=== PATIENT | male | born 1980 | race American Indian/Alaskan Native ===

== ENCOUNTER 2016-12-30 21:06 | Emergency (ER) | payer MEDICAID ==
[2016-12-30 21:59] LABS: Urine Drugs of Abuse Note Disclamer
[2016-12-30 22:07] LABS: Bilirubin,Urine NEG (Negative); Blood,Urine NEG (Negative); Ketones,Urine NEG (Negative); Leukocyte Esterase,Urine NEG (Negative); Nitrite,Urine NEG (Negative); Protein,Urine <15 mg/dL mg/dL (Negative); Urobilinogen,Urine < 2.0 mg/dL (<2.0); WBC,Urine < 1.0 /HPF (0.0-6.0)
[2016-12-30 22:13] LABS: Basophils % (Auto) 1.3 % (0.0-1.8); Eosinophils % (Auto) 2.6 % (0.0-4.3); Hematocrit 41.8 % (35.5-45.6); Hemoglobin 13.7 gm/dl (11.8-15.2); Mean Corpuscular HGB Conc 33 % (32-34); Mean Corpuscular Hemoglobin 32 pg (28-32); Mean Corpuscular Volume 98 fl (84-94); Platelet Count 198 K/mm3 (140-440); Red Blood Count 4.25 M/mm3 (3.65-5.03); Red Cell Distribution Width 13.2 % (13.2-15.2); White Blood Count 7.8 K/mm3 (4.5-11.0)
[2016-12-30 22:20] LABS: Anion Gap 16 mmol/L; Blood Urea Nitrogen 12 mg/dL (9-20); Calcium 9.2 mg/dL (8.4-10.2); Carbon Dioxide 26 mmol/L (22-30); Glucose 109 mg/dL (75-100); Potassium 4.3 mmol/L (3.6-5.0); Sodium 137 mmol/L (137-145)
[2016-12-30] MEDS ORDERED: CATAPRES PO ONE (22:47)
[2016-12-30] MEDS ORDERED: TYLENOL PO PRN (22:48)
[2016-12-30] MEDS ORDERED: ALUM-MAG HYDROX-SIMETH 200-200-20MG/5ML PO PRN (22:48)
[2016-12-30] MEDS ORDERED: MILK OF MAGNESIA PO PRN (22:48)
--- NOTE | 2016-12-30 22:48 | Emergency Department Report ---
HPI - General Chief Complaint: Psych Time Seen by Provider: 12/30/16 21:15 - HPI HPI: The patient is a 36-year-old male who presents for evaluation of mental health. The patient has a history of schizophrenia. The patient's mother states that the patient has exhibited erratic behavior and experienced hallucinations for the past couple of days. The patient states that he is hearing God's voice and they got is telling him to fight the devil and demons. The patient denies fever , headache, unexplained weight loss or weight gain, heat or cold intolerance, skin, hair, or nail changes, neuro deficits, suicidal ideations or homicidal ideations. ED Past Medical Hx - Past Medical History Previous Medical History?: Yes Hx Hypertension: Yes Hx Seizures: Yes Hx Psychiatric Treatment: Yes Additional medical history: Schizophrenia - Surgical History Past Surgical History?: Yes Additional Surgical History: Left Hand - Social History Smoking Status: Never Smoker Substance Use Type: None - Medications Home Medications: Home Medications Medication Instructions Recorded Confirmed Last Taken Type Benztropine 1 mg PO BID 12/30/16 12/30/16 Unknown History Furosemide 20 mg PO QDAY 12/30/16 12/30/16 Unknown History Hydrochlorothiazide 25 mg PO QDAY 12/30/16 12/30/16 Unknown History Lisinopril 40 mg PO DAILY 12/30/16 12/30/16 Unknown History Metoprolol SUCCINATE ER TAB 25 mg PO QDAY 12/30/16 12/30/16 Unknown History Phenytoin 200 mg PO QHS 12/30/16 12/30/16 Unknown History Phenytoin 300 mg PO QAM 12/30/16 12/30/16 Unknown History risperiDONE 3 mg PO BID 12/30/16 12/30/16 Unknown History traZODone 100 mg PO QHS 12/30/16 12/30/16 Unknown History ED Review of Systems ROS: Stated complaint: SCHIZOPHRENIC EPISODE Other details as noted in HPI Constitutional: denies: fever ENT: denies: throat or neck pain Respiratory: denies: cough, shortness of breath Cardiovascular: denies: chest pain Endocrine: denies unexplained weight loss or gain Gastrointestinal: denies: abdominal pain, nausea Genitourinary: denies: dysuria Musculoskeletal: denies: leg swelling Skin: denies: rash Neurological: denies: headache Hematological/Lymphatic: denies: easy bleeding or easy bruising Psych: reports hallucinations Physical Exam - Physical Exam Vital Signs: Vital Signs 12/30/16 12/30/16 21:26 21:45 Temperature 98.9 F Pulse Rate 100 H Respiratory 14 14 Rate Blood Pressure 157/104 Blood Pressure 157/104 [Right] O2 Sat by Pulse 94 94 Oximetry Physical Exam: General: well-nourished, well-developed, no acute distress Head: Normocephalic, atraumatic Eyes: normal sclera ENT: Mucous membranes are pink and moist Neck: trachea midline, neck supple, No neck stiffness, no cervical adenopathy Respiratory: Breath sounds equal bilaterally, no wheezing, rales, or rhonchi Cardio: S1 and S2 present, no murmurs, rubs, gallops, capillary refill is brisk Abdomen: Normoactive bowel sounds, soft abdomen, no tenderness Musc: No pitting edema Skin: No rash Neuro: no facial drooping, normal speech Psych: Flat affect, depressed mood, poor insight, patient delusional, positive hallucinations ED Course Vital Signs 12/30/16 12/30/16 21:26 21:45 Temperature 98.9 F Pulse Rate 100 H Respiratory 14 14 Rate Blood Pressure 157/104 Blood Pressure 157/104 [Right] O2 Sat by Pulse 94 94 Oximetry ED Medical Decision Making - Lab Data Result diagrams: 12/30/16 21:52 12/30/16 21:52 - Medical Decision Making The patient was seen and examined by myself. The patient is placed on a cardiac cath tech and continuous pulse ox. On initial evaluation, the patient was found to be in no distress. The patient is given a tablet of clonidine for treatment of his hypertension. Labs are obtained. Lab results are grossly unremarkable and the patient was found to have normalization of blood pressure . The patient is medically clear. Mental health is consulted. Mental health evaluates the patient and agrees that the patient is exhibiting symptoms consistent with acute psychosis. A 1013 is completed. The patient will be admitted to a psychiatric facility once bed placement is obtained. Critical care attestation.: If time is entered above; I have spent that time in minutes in the direct care of this critically ill patient, excluding procedure time. ED Disposition Clinical Impression: Acute psychosis, Hypertensive urgency Schizophrenia Qualifiers: Schizophrenia type: paranoid schizophrenia Qualified Code(s): F20.0 - Paranoid schizophrenia Disposition: DC/TX PSY HOSP/PSY UNIT Is pt being admited?: No Does the pt Need Aspirin: No Condition: Stable Referrals: PRIMARY CARE, [Primary Care Provider] - 3-5 Days Time of Disposition: 22:46
[2016-12-31] MEDS ORDERED: CATAPRES ONE (01:57)
[2016-12-31 03:38] VITALS: BP 149/90
[2016-12-31] MEDS ORDERED: NON-FORMULARY (Metoprolol Succinate Er Tab 25 MG) PO SCH (10:00)
[2016-12-31] MEDS ORDERED: TOPROL XL PO SCH (10:00)
[2016-12-31] MEDS ORDERED: NON-FORMULARY (Hydrochlorothiazide 25 MG) PO SCH (10:00)
[2016-12-31] MEDS ORDERED: RisperDAL PO SCH (10:00)
[2016-12-31] MEDS ORDERED: NON-FORMULARY (Furosemide 20 MG) PO SCH (10:00)
[2016-12-31] MEDS ORDERED: ZESTRIL PO SCH (10:00)
[2016-12-31] MEDS ORDERED: PHENYTOIN 300 MG PO SCH (10:00)
[2016-12-31] MEDS ORDERED: COGENTIN PO SCH (10:00)
[2016-12-31] MEDS ORDERED: HCTZ PO SCH (10:00)
[2016-12-31] MEDS ORDERED: DILANTIN PO SCH ×2 (10:00→22:00)
[2016-12-31] MEDS ORDERED: BENZTROPINE 1 MG PO SCH (10:00)
[2016-12-31] MEDS ORDERED: LASIX PO SCH (10:00)
[2016-12-31] MEDS ORDERED: NON-FORMULARY (Lisinopril 40 MG) PO SCH (10:00)
[2016-12-31] MEDS ORDERED: RISPERIDONE 3 MG PO SCH (10:00)
[2016-12-31] MEDS ORDERED: PHENYTOIN 200 MG PO SCH (22:00)
== END 2016-12-31 05:52 ==
LOC: EEVIPCON 21:06 → ED 21:06
DX: F20.0 Paranoid schizophrenia (principal); F23 Brief psychotic disorder; I10 Essential (primary) hypertension
CPT/HCPCS: 36415; 80048; 80307; 81001; 85025; 99285; G0480; 80320

== ENCOUNTER 2017-01-08 08:16 | Emergency (ER) | payer MEDICAID ==
[2017-01-08 09:21] VITALS: BP 154/100
[2017-01-08] MEDS ORDERED: HALDOL ONE (10:32)
[2017-01-08] MEDS ORDERED: VERSED IV ONE (10:33)
[2017-01-08] MEDS ORDERED: HALDOL IM ONE (10:58)
[2017-01-08] MEDS ORDERED: VERSED IV NR (11:00)
--- NOTE | 2017-01-08 11:22 | Emergency Department Report ---
ED Psych HPI - General Chief Complaint: Psych Stated Complaint: BIPOLAR Time Seen by Provider: 01/08/17 10:56 Source: patient Mode of arrival: Ambulatory - History of Present Illness MD Complaint: suicidal ideation, feels depressed, altered mental status -: Gradual Associated Psychiatric Symptoms: depression, suicidal ideation, homicidal ideation, auditory hallucinations History of same: Yes Quality: constant Improves With: none Associated Symptoms: denies: confusion, headache, shortness of breath, nausea, vomiting, syncope - Related Data Home Medications Medication Instructions Recorded Confirmed Last Taken Benztropine 1 mg PO BID 12/30/16 12/30/16 Unknown Furosemide 20 mg PO QDAY 12/30/16 12/30/16 Unknown Hydrochlorothiazide 25 mg PO QDAY 12/30/16 12/30/16 Unknown Lisinopril 40 mg PO DAILY 12/30/16 12/30/16 Unknown Metoprolol SUCCINATE ER TAB 25 mg PO QDAY 12/30/16 12/30/16 Unknown Phenytoin 200 mg PO QHS 12/30/16 12/30/16 Unknown Phenytoin 300 mg PO QAM 12/30/16 12/30/16 Unknown risperiDONE 3 mg PO BID 12/30/16 12/30/16 Unknown traZODone 100 mg PO QHS 12/30/16 12/30/16 Unknown Allergies Allergy/AdvReac Type Severity Reaction Status Date / Time No Known Allergies Allergy Verified 12/31/16 02:27 ED Review of Systems ROS: Stated complaint: BIPOLAR Other details as noted in HPI Comment: All other systems reviewed and negative ED Past Medical Hx - Past Medical History Hx Hypertension: Yes Hx Seizures: Yes Hx Psychiatric Treatment: Yes Additional medical history: Schizophrenia - Surgical History Additional Surgical History: Left Hand - Social History Smoking Status: Never Smoker Substance Use Type: None - Medications Home Medications: Home Medications Medication Instructions Recorded Confirmed Last Taken Type Benztropine 1 mg PO BID 12/30/16 12/30/16 Unknown History Furosemide 20 mg PO QDAY 12/30/16 12/30/16 Unknown History Hydrochlorothiazide 25 mg PO QDAY 12/30/16 12/30/16 Unknown History Lisinopril 40 mg PO DAILY 12/30/16 12/30/16 Unknown History Metoprolol SUCCINATE ER TAB 25 mg PO QDAY 12/30/16 12/30/16 Unknown History Phenytoin 200 mg PO QHS 12/30/16 12/30/16 Unknown History Phenytoin 300 mg PO QAM 12/30/16 12/30/16 Unknown History risperiDONE 3 mg PO BID 12/30/16 12/30/16 Unknown History traZODone 100 mg PO QHS 12/30/16 12/30/16 Unknown History ED Physical Exam - General Limitations: No Limitations General appearance: alert, in no apparent distress - Head Head exam: Present: atraumatic, normocephalic - Eye Eye exam: Present: normal appearance - ENT ENT exam: Present: mucous membranes moist - Neck Neck exam: Present: normal inspection - Respiratory Respiratory exam: Present: normal lung sounds bilaterally. Absent: respiratory distress - Cardiovascular Cardiovascular Exam: Present: regular rate, normal rhythm. Absent: systolic murmur, diastolic murmur, rubs, gallop - GI/Abdominal GI/Abdominal exam: Present: soft, normal bowel sounds - Rectal Rectal exam: Present: deferred - Extremities Exam Extremities exam: Present: normal inspection - Back Exam Back exam: Present: normal inspection - Neurological Exam Neurological exam: Present: alert, oriented X3 - Psychiatric Psychiatric exam: Present: depressed, anxious - Skin Skin exam: Present: warm, dry, intact, normal color. Absent: rash ED Course Vital Signs 01/08/17 09:20 Temperature 99.6 F Pulse Rate 108 H Respiratory 18 Rate Blood Pressure 154/100 [Left] O2 Sat by Pulse 100 Oximetry ED Medical Decision Making - Medical Decision Making Case discuss with psych secure software assessor and agree with plan for admission. l;abs negative and will wait for placement Critical care attestation.: If time is entered above; I have spent that time in minutes in the direct care of this critically ill patient, excluding procedure time. ED Disposition Clinical Impression: Acute psychosis, Schizophrenia Disposition: DC/TX-65 PSY HOSP/PSY UNIT Is pt being admited?: No Does the pt Need Aspirin: No Condition: Fair Referrals: PRIMARY CARE, [Primary Care Provider] - 3-5 Days Time of Disposition: 14:30
[2017-01-08 16:35] LABS: Basophils % (Auto) 1.1 % (0.0-1.8); Eosinophils % (Auto) 1.9 % (0.0-4.3); Mean Corpuscular HGB Conc 33 % (32-34); Mean Corpuscular Hemoglobin 32 pg (28-32); Mean Corpuscular Volume 98 fl (84-94); Platelet Count 207 K/mm3 (140-440); Red Blood Count 4.39 M/mm3 (3.65-5.03); Red Cell Distribution Width 13.3 % (13.2-15.2); White Blood Count 8.4 K/mm3 (4.5-11.0)
[2017-01-08 16:37] LABS: Anion Gap 19 mmol/L; BUN/Creatinine Ratio 15.71; Blood Urea Nitrogen 11 mg/dL (9-20); Calcium 8.9 mg/dL (8.4-10.2); Carbon Dioxide 24 mmol/L (22-30); Chloride 100.5 mmol/L (98-107); Glucose 101 mg/dL (75-100); Potassium 4.2 mmol/L (3.6-5.0); Sodium 139 mmol/L (137-145)
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
== END 2017-01-08 20:25 | disposition home or self-care (01) ==
LOC: ED 08:16 → EEVIPCON 08:16 → ED 20:25
DX: F23 Brief psychotic disorder (principal); F20.9 Schizophrenia, unspecified; I10 Essential (primary) hypertension; R56.9 Unspecified convulsions
CPT/HCPCS: 36415; 80048; 85025; 96372; 96374; 99283; G0480; J1630; J2250; 80320

== ENCOUNTER 2021-12-02 23:51 | Emergency (ER) | payer MEDICAID ==
[2021-12-03] MEDS ORDERED: LORazepam 2 MG/ML VIAL IM PRN (00:06)
[2021-12-03] MEDS ORDERED: HALOPERIDOL LACTATE 5 MG/1 ML INJ IM PRN (00:06)
--- NOTE | 2021-12-03 00:12 | Emergency Department Report ---
ED General Adult HPI - General Chief complaint: Psych Stated complaint: Patient does not answer my questions Time Seen by Provider: 12/03/21 00:06 Source: RN notes reviewed, old records reviewed Mode of arrival: Ambulatory Limitations: Other (Patient is awake and acutely psychotic) - History of Present Illness Initial comments: This patient is a 40-year-old gentleman with a history of schizophrenia and hypertension, presenting to the ER today with a triage written complaint of homicidality, and psychosis. The patient is awake, and ambulatory and will not answer my questions. He has a known history of psychiatric disease. He does not answer open ended questions or close ended questions. He is not currently accompanied by friends or family at this time for me to obtain collateral information. -: unknown - Related Data Home Medications Medication Instructions Recorded Confirmed Last Taken Benztropine 1 mg PO BID 12/30/16 12/30/16 Unknown Furosemide 20 mg PO QDAY 12/30/16 12/30/16 Unknown Hydrochlorothiazide 25 mg PO QDAY 12/30/16 12/30/16 Unknown Lisinopril 40 mg PO DAILY 12/30/16 12/30/16 Unknown Metoprolol SUCCINATE ER TAB 25 mg PO QDAY 12/30/16 12/30/16 Unknown Phenytoin 200 mg PO QHS 12/30/16 12/30/16 Unknown Phenytoin 300 mg PO QAM 12/30/16 12/30/16 Unknown risperiDONE 3 mg PO BID 12/30/16 12/30/16 Unknown traZODone 100 mg PO QHS 12/30/16 12/30/16 Unknown Allergies Allergy/AdvReac Type Severity Reaction Status Date / Time No Known Allergies Allergy Verified 12/31/16 02:27 ED Review of Systems ROS: Stated complaint: MENTAL HEALTH EVAL/HOMOCIDAL Other details as noted in HPI Comment: Unobtainable due to pts medical conditions ED Past Medical Hx - Past Medical History Hx Hypertension: Yes Hx Seizures: Yes Hx Psychiatric Treatment: Yes Additional medical history: Schizophrenia - Surgical History Additional Surgical History: Left Hand - Social History Smoking Status: Never Smoker Substance Use Type: None - Medications Home Medications: Home Medications Medication Instructions Recorded Confirmed Last Taken Type Benztropine 1 mg PO BID 12/30/16 12/30/16 Unknown History Furosemide 20 mg PO QDAY 12/30/16 12/30/16 Unknown History Hydrochlorothiazide 25 mg PO QDAY 12/30/16 12/30/16 Unknown History Lisinopril 40 mg PO DAILY 12/30/16 12/30/16 Unknown History Metoprolol SUCCINATE ER TAB 25 mg PO QDAY 12/30/16 12/30/16 Unknown History Phenytoin 200 mg PO QHS 12/30/16 12/30/16 Unknown History Phenytoin 300 mg PO QAM 12/30/16 12/30/16 Unknown History risperiDONE 3 mg PO BID 12/30/16 12/30/16 Unknown History traZODone 100 mg PO QHS 12/30/16 12/30/16 Unknown History ED Physical Exam - General Limitations: Other (Psychosis) General appearance: in no apparent distress, anxious, obese - Head Head exam: Present: atraumatic, normocephalic - Eye Eye exam: Present: normal appearance, EOMI. Absent: nystagmus - ENT ENT exam: Present: normal exam, normal orophraynx, mucous membranes moist, normal external ear exam - Neck Neck exam: Present: normal inspection, full ROM. Absent: tenderness, meningismus - Respiratory Respiratory exam: Present: normal lung sounds bilaterally. Absent: respiratory distress, wheezes, rales, rhonchi, stridor, decreased breath sounds - Cardiovascular Cardiovascular Exam: Present: regular rate, normal rhythm, normal heart sounds. Absent: bradycardia, tachycardia, irregular rhythm, systolic murmur, diastolic murmur, rubs, gallop - GI/Abdominal GI/Abdominal exam: Present: soft. Absent: distended, tenderness, guarding, rebound, rigid, pulsatile mass - Rectal Rectal exam: Present: deferred - Extremities Exam Extremities exam: Present: normal inspection, full ROM, other (2+ pulses noted in the bilateral upper and lower extremities. There is no palpable cord. negative Homans sign. Muscular compartments are soft. The pelvis is stable.). Absent: calf tenderness - Back Exam Back exam: Present: normal inspection, full ROM. Absent: tenderness, CVA tenderness (R), CVA tenderness (L), paraspinal tenderness, vertebral tenderness - Neurological Exam Neurological exam: Present: alert, normal gait, other (There is no facial droop. EOMI. Moving 4 extremities. Ambulatory with a steady gait) - Psychiatric Psychiatric exam: Present: other (The patient is awake and nonverbal and not speaking to me) - Skin Skin exam: Present: warm, dry, intact, normal color. Absent: rash ED Course Vital Signs 12/02/21 12/03/21 23:58 00:16 Temperature 98.3 F 99.1 F Pulse Rate 88 Respiratory 18 Rate Blood Pressure 181/112 O2 Sat by Pulse 95 Oximetry - Reevaluation(s) Reevaluation #1: 12/03/21 01:05 Differential diagnosis, include but not limited to: Psychosis, chronic hypertension, medical clearance for psychiatric placement Assessment and plan: 40-year-old gentleman, who is awake, ambulatory with a steady gait, chronically hypertensive, with a triage documented complaint of psychosis, schizophrenia, and homicidality. Patient is placed on 1013. Appropriate screening laboratory studies ordered. Continue home medications. Psychiatric consultation requested. Reassess 12/03/21 02:07 Laboratory studies are essentially unremarkable. COVID swab is pending. Emergency room will follow along as the patient provides a COVID swab. At this point in time, the patient does not appear to have an immediate medical contraindication to psychiatric admission, evaluation, consultation and placement ED Medical Decision Making - Lab Data Result diagrams: 12/03/21 00:36 12/03/21 00:36 Vital Signs 12/02/21 12/03/21 23:58 00:16 Temperature 98.3 F 99.1 F Pulse Rate 88 Respiratory 18 Rate Blood Pressure 181/112 O2 Sat by Pulse 95 Oximetry Lab Results 12/03/21 12/03/21 12/03/21 Range/Units 00:36 00:36 00:36 WBC (4.5-11.0) K/mm3 RBC (3.65-5.03) M/mm3 Hgb (11.8-15.2) gm/dl Hct (35.5-45.6) % MCV (84-94) fl MCH (28-32) pg MCHC (32-34) % RDW (13.2-15.2) % Plt Count (140-440) K/mm3 Sodium 138 (137-145) mmol/L Potassium 5.0 (3.6-5.0) mmol/L Chloride 101.0 (98-107) mmol/L Carbon Dioxide 24 (22-30) mmol/L Anion Gap 18 mmol/L BUN 14 (9-20) mg/dL Creatinine 1.0 (0.8-1.3) mg/dL Estimated GFR > 60 ml/min BUN/Creatinine Ratio 14 % Glucose 126 H (75-100) mg/dL Calcium 8.9 (8.4-10.2) mg/dL Urine Color (Yellow) Urine Turbidity (Clear) Urine pH (5.0-7.0) Ur Specific [place] (1.003-1.030) Urine Protein (Negative) mg/dL Urine Glucose (UA) (Negative) mg/dL Urine Ketones (Negative) mg/dL Urine Blood (Negative) Urine Nitrite (Negative) Urine Bilirubin (Negative) Urine Urobilinogen (<2.0) mg/dL Ur Leukocyte Esterase (Negative) Urine WBC (Auto) (0.0-6.0) /HPF Urine RBC (Auto) (0.0-6.0) /HPF U Epithel Cells (Auto) (0-13.0) /HPF Urine Mucus /HPF Salicylates < 0.3 L (2.8-20.0) mg/dL Urine Opiates Screen Urine Methadone Screen Acetaminophen 5.0 L (10.0-30.0) ug/mL Ur Barbiturates Screen Phenytoin 0.8 L (10.0-20.0) ug/mL Ur Phencyclidine Scrn Ur Amphetamines Screen U Benzodiazepines Scrn Urine Cocaine Screen U Marijuana (THC) Screen Drugs of Abuse Note Plasma/Serum Alcohol (0-0.07) % 12/03/21 12/03/21 12/03/21 Range/Units 00:36 00:36 Unknown WBC 9.3 (4.5-11.0) K/mm3 RBC 4.66 (3.65-5.03) M/mm3 Hgb 15.1 (11.8-15.2) gm/dl Hct 46.8 H (35.5-45.6) % MCV 100 H (84-94) fl MCH 32 (28-32) pg MCHC 32 (32-34) % RDW 14.5 (13.2-15.2) % Plt Count 183 (140-440) K/mm3 Sodium (137-145) mmol/L Potassium (3.6-5.0) mmol/L Chloride (98-107) mmol/L Carbon Dioxide (22-30) mmol/L Anion Gap mmol/L BUN (9-20) mg/dL Creatinine (0.8-1.3) mg/dL Estimated GFR ml/min BUN/Creatinine Ratio % Glucose (75-100) mg/dL Calcium (8.4-10.2) mg/dL Urine Color Yellow (Yellow) Urine Turbidity Clear (Clear) Urine pH 5.0 (5.0-7.0) Ur Specific [place] 1.030 (1.003-1.030) Urine Protein 30 mg/dl (Negative) mg/dL Urine Glucose (UA) Neg (Negative) mg/dL Urine Ketones Neg (Negative) mg/dL Urine Blood Neg (Negative) Urine Nitrite Neg (Negative) Urine Bilirubin Neg (Negative) Urine Urobilinogen 4.0 (<2.0) mg/dL Ur Leukocyte Esterase Neg (Negative) Urine WBC (Auto) 1.0 (0.0-6.0) /HPF Urine RBC (Auto) 3.0 (0.0-6.0) /HPF U Epithel Cells (Auto) < 1.0 (0-13.0) /HPF Urine Mucus 3+ /HPF Salicylates (2.8-20.0) mg/dL Urine Opiates Screen Urine Methadone Screen Acetaminophen (10.0-30.0) ug/mL Ur Barbiturates Screen Phenytoin (10.0-20.0) ug/mL Ur Phencyclidine Scrn Ur Amphetamines Screen U Benzodiazepines Scrn Urine Cocaine Screen U Marijuana (THC) Screen Drugs of Abuse Note Plasma/Serum Alcohol < 0.01 (0-0.07) % 12/03/21 Range/Units Unknown WBC (4.5-11.0) K/mm3 RBC (3.65-5.03) M/mm3 Hgb (11.8-15.2) gm/dl Hct (35.5-45.6) % MCV (84-94) fl MCH (28-32) pg MCHC (32-34) % RDW (13.2-15.2) % Plt Count (140-440) K/mm3 Sodium (137-145) mmol/L Potassium (3.6-5.0) mmol/L Chloride (98-107) mmol/L Carbon Dioxide (22-30) mmol/L Anion Gap mmol/L BUN (9-20) mg/dL Creatinine (0.8-1.3) mg/dL Estimated GFR ml/min BUN/Creatinine Ratio % Glucose (75-100) mg/dL Calcium (8.4-10.2) mg/dL Urine Color (Yellow) Urine Turbidity (Clear) Urine pH (5.0-7.0) Ur Specific [place] (1.003-1.030) Urine Protein (Negative) mg/dL Urine Glucose (UA) (Negative) mg/dL Urine Ketones (Negative) mg/dL Urine Blood (Negative) Urine Nitrite (Negative) Urine Bilirubin (Negative) Urine Urobilinogen (<2.0) mg/dL Ur Leukocyte Esterase (Negative) Urine WBC (Auto) (0.0-6.0) /HPF Urine RBC (Auto) (0.0-6.0) /HPF U Epithel Cells (Auto) (0-13.0) /HPF Urine Mucus /HPF Salicylates (2.8-20.0) mg/dL Urine Opiates Screen Presumptive negative Urine Methadone Screen Presumptive negative Acetaminophen (10.0-30.0) ug/mL Ur Barbiturates Screen Presumptive negative Phenytoin (10.0-20.0) ug/mL Ur Phencyclidine Scrn Presumptive negative Ur Amphetamines Screen Presumptive negative U Benzodiazepines Scrn Presumptive negative Urine Cocaine Screen Presumptive positive U Marijuana (THC) Screen Presumptive positive Drugs of Abuse Note Disclamer Plasma/Serum Alcohol (0-0.07) % Critical care attestation.: If time is entered above; I have spent that time in minutes in the direct care of this critically ill patient, excluding procedure time. ED Disposition Clinical Impression: Medical clearance for psychiatric admission, Elevated blood pressure reading Disposition: [address] [place] [address] Is pt being admited?: No Does the pt Need Aspirin: No Condition: Good Referrals: ROSCOE CAMPOS MD [Primary Care Provider] - 3-5 Days
[2021-12-03 01:12] LABS: Hematocrit 46.8 % (35.5-45.6); Hemoglobin 15.1 gm/dl (11.8-15.2); Mean Corpuscular HGB Conc 32 % (32-34); Mean Corpuscular Volume 100 fl (84-94); Platelet Count 183 K/mm3 (140-440); Red Blood Count 4.66 M/mm3 (3.65-5.03); Red Cell Distribution Width 14.5 % (13.2-15.2)
[2021-12-03 01:33] LABS: BUN/Creatinine Ratio 14; Blood Urea Nitrogen 14 mg/dL (9-20); Calcium 8.9 mg/dL (8.4-10.2); Hemolysis Index 240
[2021-12-03 01:48] LABS: Bilirubin,Urine NEG (Negative); Blood,Urine NEG (Negative); Color,Urine Yellow (Yellow); Mucus,Urine 3+ /HPF
[2021-12-03 01:56] LABS: Amphetamine Screen,Urine PRESUMPTIVE NEGATIVE; Benzodiazepines Screen,Urine PRESUMPTIVE NEGATIVE; Cannabinoid Screen,Urine PRESUMPTIVE POSITIVE; Cocaine Screen,Urine PRESUMPTIVE POSITIVE; Methadone Screen,Urine PRESUMPTIVE NEGATIVE; Opiate Screen,Urine PRESUMPTIVE NEGATIVE
[2021-12-03] MEDS: hydroCHLOROthiazide 25 MG TAB PO SCH (09:34)
[2021-12-03] MEDS: FUROSEMIDE 20 MG TAB PO SCH (09:34)
[2021-12-03] MEDS ORDERED: NON-FORMULARY EACH (Metoprolol Succinate Er Tab 25 MG) PO SCH (10:00)
[2021-12-03] MEDS ORDERED: NON-FORMULARY EACH (Hydrochlorothiazide 25 MG) PO SCH (10:00)
[2021-12-03] MEDS ORDERED: NON-FORMULARY EACH (Furosemide 20 MG) PO SCH (10:00)
[2021-12-03] MEDS ORDERED: NON-FORMULARY EACH (Lisinopril 40 MG) PO SCH (10:00)
[2021-12-03] MEDS: LISINOPRIL 40 MG TAB PO SCH (10:11)
[2021-12-03] MEDS: METOPROLOL SUCCINATE XL 25 MG TAB PO SCH (10:11)
--- NOTE | 2021-12-03 11:45 | Event Note ---
Date: 12/03/21 Patient is 41 years old male with history of schizophrenia. Patient presented to the ER with homicidal ideation and acute psychosis. Vital signs stable except for blood pressure slightly elevated. Patient blood pressure medication resumed. Patient has been already evaluated by psychiatric team and recommended inpatient psychiatric admission.
--- NOTE | 2021-12-03 13:29 | Consultation ---
History of Present Illness - Reason for Consult Consult date: 12/03/21 Reason for consult: psychosis - History of Present Psychiatric Illness The patient is a 40 year old male with history of schizophrenia who presents to the Ed with suicidal ideation and psychosis. The patient was seen this morning. The patient is calm, and alert. 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 PAST PSYCHIATRIC HISTORY PAST MEDICAL HISTORY: none reported Family Psychiatric History: None reported or documented SOCIAL HISTORY REVIEW OF SYSTEMS MENTAL STATUS EXAMINATION Assessment and Plan (1) Hx schizophrenia Current Visit: Yes Status: Acute Treatment Continue home meds.. 1013 Start Cogentin 1mg po BID Start Risperidone 3mg po BID Start Trazodone 50mg po QHS Sitter: Per primary Medical: Per primary Disposition: Recommend acute inpatient psychiatric treatment. Case staffed with Dr. Hines Will follow. Thank you Medications and Allergies Medications and Allergies Allergies Allergy/AdvReac Type Severity Reaction Status Date / Time No Known Allergies Allergy Verified 12/31/16 02:27 Home Medications Medication Instructions Recorded Confirmed Last Taken Type Benztropine 1 mg PO BID 12/30/16 12/30/16 Unknown History Furosemide 20 mg PO QDAY 12/30/16 12/30/16 Unknown History Hydrochlorothiazide 25 mg PO QDAY 12/30/16 12/30/16 Unknown History Lisinopril 40 mg PO DAILY 12/30/16 12/30/16 Unknown History Metoprolol SUCCINATE ER TAB 25 mg PO QDAY 12/30/16 12/30/16 Unknown History Phenytoin 200 mg PO QHS 12/30/16 12/30/16 Unknown History Phenytoin 300 mg PO QAM 12/30/16 12/30/16 Unknown History risperiDONE 3 mg PO BID 12/30/16 12/30/16 Unknown History traZODone 100 mg PO QHS 12/30/16 12/30/16 Unknown History Active Meds: Active Medications Furosemide (Furosemide 20 Mg Tab) 20 mg PO DAILY [facility] Last Admin: 12/03/21 09:34 Dose: 20 mg Haloperidol Lactate (Haloperidol Lactate 5 Mg/1 Ml Inj) 5 mg IM Q6HR PRN PRN Reason: Agitation Hydrochlorothiazide (Hydrochlorothiazide 25 Mg Tab) 25 mg PO QDAY [facility] Last Admin: 12/03/21 09:34 Dose: 25 mg Lisinopril (Lisinopril 40 Mg Tab) 40 mg PO DAILY [facility] Last Admin: 12/03/21 10:11 Dose: 40 mg Lorazepam (Lorazepam 2 Mg/Ml Vial) 2 mg IM Q4HR PRN PRN Reason: Agitation Metoprolol Succinate (Metoprolol Succinate Xl 25 Mg Tab) 25 mg PO QDAY [facility] Last Admin: 12/03/21 10:11 Dose: 25 mg Mental Status Exam - Vital signs Last Vital Signs Temp 98.6 F 12/03/21 11:18 Pulse 75 12/03/21 11:18 Resp 16 12/03/21 11:18 BP 159/105 12/03/21 11:18 Pulse Ox 100 12/03/21 11:32 Results Result Diagrams: 12/03/21 00:36 12/03/21 00:36 Abnormal lab results 12/03/21 12/03/21 12/03/21 Range/Units 00:36 00:36 00:36 Hct (35.5-45.6) % MCV (84-94) fl Glucose 126 H (75-100) mg/dL Salicylates < 0.3 L (2.8-20.0) mg/dL Acetaminophen 5.0 L (10.0-30.0) ug/mL Phenytoin 0.8 L (10.0-20.0) ug/mL 12/03/21 Range/Units 00:36 Hct 46.8 H (35.5-45.6) % MCV 100 H (84-94) fl Glucose (75-100) mg/dL Salicylates (2.8-20.0) mg/dL Acetaminophen (10.0-30.0) ug/mL Phenytoin (10.0-20.0) ug/mL All other labs normal.
[2021-12-03] MEDS ORDERED: BENZTROPINE 1 MG PO SCH (13:45)
[2021-12-03] MEDS ORDERED: RISPERIDONE 3 MG PO SCH (13:45)
[2021-12-03] MEDS: risperiDONE 3 MG TAB PO SCH ×2 (14:03→22:21)
[2021-12-03] MEDS: BENZTROPINE 1 MG TAB PO SCH ×2 (14:03→22:20)
[2021-12-03] MEDS: traZODone 50 MG TAB PO SCH (22:21)
--- NOTE | 2021-12-04 10:35 | Progress Note ---
Subjective - Reason for Consult Consult date: 12/04/21 Reason for consult: psychosis - Chief Complaint Chief complaint: The patient was seen this morning. He presents with flat affect. He endorses being depressed with suicidal ideation. He reports getting monthly Invega inj which he states he took last month. The patient states he get treatment at [facility] in [place]; called [facility] @ [phone] to inquire about patient's last shot however, they refused to provide information. The patient reports having commanding auditory hallucinations " voices telling me to kill myself." He denies visual hallucinations. REVIEW OF SYSTEMS Constitutional: Negative for weight loss ENT: Negative for stridor Respiratory: Negative for cough or hemoptysis All other systems reviewed and are negative MENTAL STATUS EXAMINATION General Appearance and Behavior: Age appropriate, good hygiene, wearing appropriate clothes, poor eye contact, cooperative polite with questioning. Cooperation: Participating/engaged, guarded Psychomotor Behavior: unremarkable and within normal limits Mood: Depressed Affect and affective range: congruent with mood Thought Process: Circumstantial Thought Content: Suicidal Speech: Normal volume, Regular rate and rhythm Intellectual Functioning: Average Suicidal Ideation: Yes Homicidal Ideation: Denies Hallucinations: Auditory- Commanding Delusions: None Impulse Control: Normal Insight and Judgment: Limited insight and judgment, Memory: Normal, Attention: Normal, Orientation: Alert, oriented, Assessment and Plan (1) Schizophrenia (2) Current Visit: Yes Status: Acute Treatment 1013 Continue home meds Continue Cogentin 1mg po BID Continue Risperidone 3mg po BID Continue Trazodone 50mg po QHS Sitter: Per primary Medical: Per primary Disposition: Recommend acute inpatient psychiatric treatment. Case staffed with Dr. Hines Will follow. Thank you Mental Status Exam - Vital signs Last Vital Signs Temp 97.2 F L 12/04/21 09:22 Pulse 64 12/04/21 09:22 Resp 17 12/04/21 09:22 BP 146/84 12/04/21 09:22 Pulse Ox 97 12/04/21 09:22
[2021-12-04] MEDS: BENZTROPINE 1 MG TAB PO SCH ×2 (10:40→23:00)
[2021-12-04] MEDS: hydroCHLOROthiazide 25 MG TAB PO SCH (10:40)
[2021-12-04] MEDS: LISINOPRIL 40 MG TAB PO SCH (10:40)
[2021-12-04] MEDS: risperiDONE 3 MG TAB PO SCH ×2 (10:40→23:00)
[2021-12-04] MEDS: FUROSEMIDE 20 MG TAB PO SCH (10:40)
[2021-12-04] MEDS: METOPROLOL SUCCINATE XL 25 MG TAB PO SCH (10:40)
--- NOTE | 2021-12-04 12:27 | Event Note ---
Date: 12/04/21 The patient was evaluated in the emergency department for symptoms described in the history of present illness. He/she was evaluated in the context of the global COVID-19 pandemic, which necessitated consideration that the patient might be at risk for infection with the virus that causes COVID-19. Institutional protocols and algorithms that pertain to the evaluation of patients at risk for COVID-19 are in a state of rapid change based on information released by regulatory bodies including the CDC and federal and state organizations. These policies and algorithms were followed during the patient's care in the emergency department. Please note that these policies, procedures and recommendations changed on a rapid basis. Laboratory studies, vital signs, nursing documentation, ER documentation, and psychiatric documentation are reviewed and appreciated. Nursing team reports no acute events this morning or concerns. The patient is awake and ambulating and does not appear to be in any acute distress. The patient was deemed medically suitable for psychiatric disposition and placement during his initial ER evaluation. The patient continues to remain medically suitable for psychiatric placement and disposition. He is currently pending psychiatric placement. Vital Signs 12/02/21 12/03/21 12/03/21 23:58 00:16 11:18 Temperature 98.3 F 99.1 F 98.6 F Pulse Rate 88 75 Respiratory 18 16 Rate Blood Pressure 181/112 Blood Pressure 159/105 [Right] O2 Sat by Pulse 95 99 Oximetry 12/03/21 12/03/21 12/03/21 11:32 13:53 14:05 Temperature 97.2 F L Pulse Rate 74 74 Respiratory 15 17 Rate Blood Pressure Blood Pressure 131/90 131/90 [Right] O2 Sat by Pulse 100 100 Oximetry 12/04/21 12/04/21 12/04/21 09:22 10:38 10:43 Temperature 97.2 F L Pulse Rate 64 96 H Respiratory 17 18 Rate Blood Pressure Blood Pressure 146/84 130/97 [Right] O2 Sat by Pulse 97 98 Oximetry Lab Results 12/03/21 12/03/21 12/03/21 Range/Units 00:36 00:36 00:36 WBC (4.5-11.0) K/mm3 RBC (3.65-5.03) M/mm3 Hgb (11.8-15.2) gm/dl Hct (35.5-45.6) % MCV (84-94) fl MCH (28-32) pg MCHC (32-34) % RDW (13.2-15.2) % Plt Count (140-440) K/mm3 Sodium 138 (137-145) mmol/L Potassium 5.0 (3.6-5.0) mmol/L Chloride 101.0 (98-107) mmol/L Carbon Dioxide 24 (22-30) mmol/L Anion Gap 18 mmol/L BUN 14 (9-20) mg/dL Creatinine 1.0 (0.8-1.3) mg/dL Estimated GFR > 60 ml/min BUN/Creatinine Ratio 14 % Glucose 126 H (75-100) mg/dL Calcium 8.9 (8.4-10.2) mg/dL Urine Color (Yellow) Urine Turbidity (Clear) Urine pH (5.0-7.0) Ur Specific [place] (1.003-1.030) Urine Protein (Negative) mg/dL Urine Glucose (UA) (Negative) mg/dL Urine Ketones (Negative) mg/dL Urine Blood (Negative) Urine Nitrite (Negative) Urine Bilirubin (Negative) Urine Urobilinogen (<2.0) mg/dL Ur Leukocyte Esterase (Negative) Urine WBC (Auto) (0.0-6.0) /HPF Urine RBC (Auto) (0.0-6.0) /HPF U Epithel Cells (Auto) (0-13.0) /HPF Urine Mucus /HPF Salicylates < 0.3 L (2.8-20.0) mg/dL Urine Opiates Screen Urine Methadone Screen Acetaminophen 5.0 L (10.0-30.0) ug/mL Ur Barbiturates Screen Phenytoin 0.8 L (10.0-20.0) ug/mL Ur Phencyclidine Scrn Ur Amphetamines Screen U Benzodiazepines Scrn Urine Cocaine Screen U Marijuana (THC) Screen Drugs of Abuse Note Plasma/Serum Alcohol (0-0.07) % SARS-CoV-2 (PCR) (Negative) 12/03/21 12/03/21 12/03/21 Range/Units 00:36 00:36 09:47 WBC 9.3 (4.5-11.0) K/mm3 RBC 4.66 (3.65-5.03) M/mm3 Hgb 15.1 (11.8-15.2) gm/dl Hct 46.8 H (35.5-45.6) % MCV 100 H (84-94) fl MCH 32 (28-32) pg MCHC 32 (32-34) % RDW 14.5 (13.2-15.2) % Plt Count 183 (140-440) K/mm3 Sodium (137-145) mmol/L Potassium (3.6-5.0) mmol/L Chloride (98-107) mmol/L Carbon Dioxide (22-30) mmol/L Anion Gap mmol/L BUN (9-20) mg/dL Creatinine (0.8-1.3) mg/dL Estimated GFR ml/min BUN/Creatinine Ratio % Glucose (75-100) mg/dL Calcium (8.4-10.2) mg/dL Urine Color (Yellow) Urine Turbidity (Clear) Urine pH (5.0-7.0) Ur Specific [place] (1.003-1.030) Urine Protein (Negative) mg/dL Urine Glucose (UA) (Negative) mg/dL Urine Ketones (Negative) mg/dL Urine Blood (Negative) Urine Nitrite (Negative) Urine Bilirubin (Negative) Urine Urobilinogen (<2.0) mg/dL Ur Leukocyte Esterase (Negative) Urine WBC (Auto) (0.0-6.0) /HPF Urine RBC (Auto) (0.0-6.0) /HPF U Epithel Cells (Auto) (0-13.0) /HPF Urine Mucus /HPF Salicylates (2.8-20.0) mg/dL Urine Opiates Screen Urine Methadone Screen Acetaminophen (10.0-30.0) ug/mL Ur Barbiturates Screen Phenytoin (10.0-20.0) ug/mL Ur Phencyclidine Scrn Ur Amphetamines Screen U Benzodiazepines Scrn Urine Cocaine Screen U Marijuana (THC) Screen Drugs of Abuse Note Plasma/Serum Alcohol < 0.01 (0-0.07) % SARS-CoV-2 (PCR) Negative (Negative) 12/03/21 12/03/21 Range/Units Unknown Unknown WBC (4.5-11.0) K/mm3 RBC (3.65-5.03) M/mm3 Hgb (11.8-15.2) gm/dl Hct (35.5-45.6) % MCV (84-94) fl MCH (28-32) pg MCHC (32-34) % RDW (13.2-15.2) % Plt Count (140-440) K/mm3 Sodium (137-145) mmol/L Potassium (3.6-5.0) mmol/L Chloride (98-107) mmol/L Carbon Dioxide (22-30) mmol/L Anion Gap mmol/L BUN (9-20) mg/dL Creatinine (0.8-1.3) mg/dL Estimated GFR ml/min BUN/Creatinine Ratio % Glucose (75-100) mg/dL Calcium (8.4-10.2) mg/dL Urine Color Yellow (Yellow) Urine Turbidity Clear (Clear) Urine pH 5.0 (5.0-7.0) Ur Specific [place] 1.030 (1.003-1.030) Urine Protein 30 mg/dl (Negative) mg/dL Urine Glucose (UA) Neg (Negative) mg/dL Urine Ketones Neg (Negative) mg/dL Urine Blood Neg (Negative) Urine Nitrite Neg (Negative) Urine Bilirubin Neg (Negative) Urine Urobilinogen 4.0 (<2.0) mg/dL Ur Leukocyte Esterase Neg (Negative) Urine WBC (Auto) 1.0 (0.0-6.0) /HPF Urine RBC (Auto) 3.0 (0.0-6.0) /HPF U Epithel Cells (Auto) < 1.0 (0-13.0) /HPF Urine Mucus 3+ /HPF Salicylates (2.8-20.0) mg/dL Urine Opiates Screen Presumptive negative Urine Methadone Screen Presumptive negative Acetaminophen (10.0-30.0) ug/mL Ur Barbiturates Screen Presumptive negative Phenytoin (10.0-20.0) ug/mL Ur Phencyclidine Scrn Presumptive negative Ur Amphetamines Screen Presumptive negative U Benzodiazepines Scrn Presumptive negative Urine Cocaine Screen Presumptive positive U Marijuana (THC) Screen Presumptive positive Drugs of Abuse Note Disclamer Plasma/Serum Alcohol (0-0.07) % SARS-CoV-2 (PCR) (Negative)
[2021-12-04 20:21] VITALS: BP 121/90
[2021-12-04] MEDS: traZODone 50 MG TAB PO SCH (23:00)
== END 2021-12-05 09:57 ==
LOC: ED 23:51
DX: Z04.6 Encounter for general psychiatric examination, requested by authority (principal); Z20.822 Contact with and (suspected) exposure to COVID-19; F20.9 Schizophrenia, unspecified; I10 Essential (primary) hypertension; R03.0 Elevated blood-pressure reading, without diagnosis of hypertension; Z79.899 Other long term (current) drug therapy
CPT/HCPCS: 36415; 80048; 80185; 80307; 81001; 85027; 99285; U0003; 80320; G0480

== ENCOUNTER 2022-02-03 12:26 | Inpatient (IN) | payer MEDICAID ==
--- NOTE | 2022-02-03 12:50 | Emergency Department Report ---
ED General Adult HPI - General Chief complaint: Dyspnea/Respdistress Stated complaint: SOB/COUGH PUI?: Yes Time Seen by Provider: 02/03/22 12:45 Source: patient, EMS (Verbal report received from emergency medical services. EMS documentation not available at time of chart dictation ), RN notes reviewed, old records reviewed Mode of arrival: Stretcher Limitations: Physical Limitation - History of Present Illness Initial comments: The patient was evaluated in the emergency department for symptoms described in the history of present illness. He/she was evaluated in the context of the global COVID-19 pandemic, which necessitated consideration that the patient might be at risk for infection with the virus that causes COVID-19. Institutional protocols and algorithms that pertain to the evaluation of patients at risk for COVID-19 are in a state of rapid change based on information released by regulatory bodies including the CDC and federal and state organizations. These policies and algorithms were followed during the patient's care in the emergency department. Please note that these policies, procedures and recommendations changed on a rapid basis. This is a 41-year-old gentleman who presents to the department today with complaint of painless cough, shortness of breath, loss of taste and smell. EMS reports that he is hypoxic in the field to 88%. The patient states he is COVID- 19 vaccinated. The patient has a psychiatric history and he states he is not homicidal or suicidal. EMS reports putting the patient on a nonrebreather, which improved his O2 saturation. This is also improved the patient's symptoms here in the department. -: Gradual, days(s) (Symptoms started yesterday) Consistency: constant Improves with: rest Worsens with: movement - Related Data Home Medications Medication Instructions Recorded Confirmed Last Taken Benztropine 1 mg PO BID 12/30/16 12/03/21 Unknown Furosemide 20 mg PO QDAY 12/30/16 12/03/21 Unknown Hydrochlorothiazide 25 mg PO QDAY 12/30/16 12/03/21 Unknown Lisinopril 40 mg PO DAILY 12/30/16 12/03/21 Unknown Metoprolol SUCCINATE ER TAB 25 mg PO QDAY 12/30/16 12/03/21 Unknown Phenytoin 200 mg PO QHS 12/30/16 12/03/21 Unknown Phenytoin 300 mg PO QAM 12/30/16 12/03/21 Unknown risperiDONE 3 mg PO BID 12/30/16 12/03/21 Unknown traZODone 100 mg PO QHS 12/30/16 12/03/21 Unknown Allergies Allergy/AdvReac Type Severity Reaction Status Date / Time No Known Allergies Allergy Verified 12/31/16 02:27 ED Review of Systems ROS: Stated complaint: SOB/COUGH Other details as noted in HPI Constitutional: malaise, weakness. denies: fever Eyes: other (Loss of taste, loss of smell). denies: eye discharge ENT: congestion Respiratory: cough, shortness of breath Cardiovascular: denies: chest pain Gastrointestinal: denies: abdominal pain Genitourinary: denies: dysuria Musculoskeletal: denies: back pain Neurological: weakness Psychiatric: denies: homicidal thoughts, suicidal thoughts ED Past Medical Hx - Past Medical History Hx Hypertension: Yes Hx Seizures: Yes Hx Psychiatric Treatment: Yes Additional medical history: Schizophrenia - Surgical History Additional Surgical History: Left Hand - Social History Smoking Status: Current Every Day Smoker Substance Use Type: None - Medications Home Medications: Home Medications Medication Instructions Recorded Confirmed Last Taken Type Benztropine 1 mg PO BID 12/30/16 12/03/21 Unknown History Furosemide 20 mg PO QDAY 12/30/16 12/03/21 Unknown History Hydrochlorothiazide 25 mg PO QDAY 12/30/16 12/03/21 Unknown History Lisinopril 40 mg PO DAILY 12/30/16 12/03/21 Unknown History Metoprolol SUCCINATE ER TAB 25 mg PO QDAY 12/30/16 12/03/21 Unknown History Phenytoin 200 mg PO QHS 12/30/16 12/03/21 Unknown History Phenytoin 300 mg PO QAM 12/30/16 12/03/21 Unknown History risperiDONE 3 mg PO BID 12/30/16 12/03/21 Unknown History traZODone 100 mg PO QHS 12/30/16 12/03/21 Unknown History ED Physical Exam - General Limitations: Physical Limitation General appearance: alert, anxious, obese - Head Head exam: Present: atraumatic, normocephalic - Eye Eye exam: Present: normal appearance, EOMI. Absent: nystagmus - ENT ENT exam: Present: normal exam, normal orophraynx, mucous membranes moist, normal external ear exam - Neck Neck exam: Present: normal inspection, full ROM. Absent: tenderness, meningismus - Respiratory Respiratory exam: Present: respiratory distress, rhonchi - Cardiovascular Cardiovascular Exam: Present: normal rhythm, tachycardia, normal heart sounds. Absent: bradycardia, irregular rhythm, systolic murmur, diastolic murmur, rubs, gallop - GI/Abdominal GI/Abdominal exam: Present: soft. Absent: distended, tenderness, guarding, rebound, rigid, pulsatile mass - Rectal Rectal exam: Present: deferred - Extremities Exam Extremities exam: Present: normal inspection, full ROM, other (2+ pulses noted in the bilateral upper and lower extremities. There is no palpable cord. negative Homans sign. Muscular compartments are soft. The pelvis is stable.). Absent: pedal edema, calf tenderness - Back Exam Back exam: Present: normal inspection. Absent: tenderness, CVA tenderness (R), CVA tenderness (L), paraspinal tenderness, vertebral tenderness - Neurological Exam Neurological exam: Present: alert, oriented X3, other (No facial droop. Tongue midline. Extraocular movements intact bilaterally. Facial sensation intact to light touch in V1, V2, V3 distribution bilaterally. 5 and a 5 strength in 4 extremities. Sensation intact to light touch in 4 extremities.). Absent: motor sensory deficit - Psychiatric Psychiatric exam: Present: flat affect. Absent: homicidal ideation, suicidal ideation - Skin Skin exam: Present: warm, dry, intact, normal color. Absent: rash ED Course Vital Signs 02/03/22 02/03/22 02/03/22 12:35 12:53 13:00 Temperature 97.9 F Pulse Rate 105 H 100 H Respiratory 22 42 H 31 H Rate Blood Pressure 159/100 Blood Pressure 169/90 [Left] O2 Sat by Pulse 97 100 Oximetry 02/03/22 02/03/22 02/03/22 13:16 13:30 13:38 Temperature Pulse Rate 97 H 94 H Respiratory 35 H 29 H 26 H Rate Blood Pressure 159/100 159/100 Blood Pressure [Left] O2 Sat by Pulse 99 99 98 Oximetry 02/03/22 14:00 Temperature Pulse Rate 107 H Respiratory 44 H Rate Blood Pressure 175/110 Blood Pressure [Left] O2 Sat by Pulse 89 Oximetry ED Medical Decision Making - Lab Data Result diagrams: 02/03/22 12:52 02/03/22 13:00 Vital Signs 02/03/22 02/03/22 02/03/22 12:35 12:53 13:00 Temperature 97.9 F Pulse Rate 105 H 100 H Respiratory 22 42 H 31 H Rate Blood Pressure 159/100 Blood Pressure 169/90 [Left] O2 Sat by Pulse 97 100 Oximetry 02/03/22 02/03/22 02/03/22 13:16 13:30 13:38 Temperature Pulse Rate 97 H 94 H Respiratory 35 H 29 H 26 H Rate Blood Pressure 159/100 159/100 Blood Pressure [Left] O2 Sat by Pulse 99 99 98 Oximetry 02/03/22 14:00 Temperature Pulse Rate 107 H Respiratory 44 H Rate Blood Pressure 175/110 Blood Pressure [Left] O2 Sat by Pulse 89 Oximetry Lab Results 02/03/22 02/03/22 02/03/22 Range/Units 12:52 12:52 12:52 WBC 7.3 (4.5-11.0) K/mm3 RBC 4.60 (3.65-5.03) M/mm3 Hgb 15.2 (11.8-15.2) gm/dl Hct 45.0 (35.5-45.6) % MCV 98 H (84-94) fl MCH 33 H (28-32) pg MCHC 34 (32-34) % RDW 13.6 (13.2-15.2) % Plt Count 169 (140-440) K/mm3 Add Manual Diff Complete Total Counted 100 Seg Neuts % (Manual) 82.0 H (40.0-70.0) % Band Neutrophils % 0 % Lymphocytes % (Manual) 8.0 L (13.4-35.0) % Reactive Lymphs % (Man) 0 % Monocytes % (Manual) 9.0 H (0.0-7.3) % Eosinophils % (Manual) 0 (0.0-4.3) % Basophils % (Manual) 1.0 (0.0-1.8) % Metamyelocytes % 0 % Myelocytes % 0 % Promyelocytes % 0 % Blast Cells % 0 % Nucleated RBC % Not Reportable Seg Neutrophils # Man 6.0 (1.8-7.7) K/mm3 Band Neutrophils # 0.0 K/mm3 Lymphocytes # (Manual) 0.6 L (1.2-5.4) K/mm3 Abs React Lymphs (Man) 0.0 K/mm3 Monocytes # (Manual) 0.7 (0.0-0.8) K/mm3 Eosinophils # (Manual) 0.0 (0.0-0.4) K/mm3 Basophils # (Manual) 0.1 (0.0-0.1) K/mm3 Metamyelocytes # 0.0 K/mm3 Myelocytes # 0.0 K/mm3 Promyelocytes # 0.0 K/mm3 Blast Cells # 0.0 K/mm3 WBC Morphology Not Reportable Hypersegmented Neuts Not Reportable Hyposegmented Neuts Not Reportable Hypogranular Neuts Not Reportable Smudge Cells Not Reportable Toxic Granulation Not Reportable Toxic Vacuolation Not Reportable Dohle Bodies Not Reportable Pelger-Huet Anomaly Not Reportable Cliffrod Rods Not Reportable Platelet Estimate Consistent w auto Clumped Platelets Not Reportable Plt Clumps, EDTA Not Reportable Large Platelets Not Reportable Giant Platelets Not Reportable Platelet Satelliting Not Reportable Plt Morphology Comment Not Reportable RBC Morphology Not Reportable Dimorphic RBCs Not Reportable Polychromasia Not Reportable Hypochromasia Not Reportable Poikilocytosis Not Reportable Anisocytosis 1+ Microcytosis Not Reportable Macrocytosis Not Reportable Spherocytes Not Reportable Pappenheimer Bodies Not Reportable Sickle Cells Not Reportable Target Cells Not Reportable Tear Drop Cells Not Reportable Ovalocytes Not Reportable Helmet Cells Not Reportable Mario-Big Arm Bodies Not Reportable [place] Rings Not Reportable [place] Cells Not Reportable Bite Cells Not Reportable Crenated Cell Not Reportable Elliptocytes Not Reportable Acanthocytes (Spur) Not Reportable Rouleaux Not Reportable Hemoglobin C Crystals Not Reportable Schistocytes Not Reportable Malaria parasites Not Reportable Meliton Bodies Not Reportable Hem Pathologist Commnt No PT 13.5 (12.2-14.9) Sec. INR 0.93 (0.87-1.13) APTT 32.0 (24.2-36.6) Sec. D-Dimer 183.75 (0-234) ng/mlDDU Sodium 137 (137-145) mmol/L Potassium 4.1 (3.6-5.0) mmol/L Chloride 98.5 (98-107) mmol/L Carbon Dioxide 27 (22-30) mmol/L Anion Gap 16 mmol/L BUN 8 L (9-20) mg/dL Creatinine 0.8 (0.8-1.3) mg/dL Estimated GFR > 60 ml/min BUN/Creatinine Ratio 10 % Glucose 116 H (75-100) mg/dL Lactic Acid (0.7-2.0) mmol/L Calcium 9.1 (8.4-10.2) mg/dL Magnesium 2.10 (1.7-2.3) mg/dL Ferritin (30.0-300.0) ng/mL Total Bilirubin 0.60 (0.1-1.2) mg/dL AST 23 (5-40) units/L ALT 23 (7-56) units/L Alkaline Phosphatase 57 (35-129) units/L Lactate Dehydrogenase 193 H (91-180) units/L Total Creatine Kinase 534 H (55-170) units/L Troponin T < 0.010 (0.00-0.029) ng/mL C-Reactive Protein 3.30 H (0.00-1.30) mg/dL Total Protein 7.9 (6.3-8.2) g/dL Albumin 4.1 (3.9-5) g/dL Albumin/Globulin Ratio 1.1 % Salicylates (2.8-20.0) mg/dL Acetaminophen (10.0-30.0) ug/mL Valproic Acid (50-100) ug/mL 02/03/22 02/03/22 02/03/22 Range/Units 13:00 13:00 14:15 WBC (4.5-11.0) K/mm3 RBC (3.65-5.03) M/mm3 Hgb (11.8-15.2) gm/dl Hct (35.5-45.6) % MCV (84-94) fl MCH (28-32) pg MCHC (32-34) % RDW (13.2-15.2) % Plt Count (140-440) K/mm3 Add Manual Diff Total Counted Seg Neuts % (Manual) (40.0-70.0) % Band Neutrophils % % Lymphocytes % (Manual) (13.4-35.0) % Reactive Lymphs % (Man) % Monocytes % (Manual) (0.0-7.3) % Eosinophils % (Manual) (0.0-4.3) % Basophils % (Manual) (0.0-1.8) % Metamyelocytes % % Myelocytes % % Promyelocytes % % Blast Cells % % Nucleated RBC % Seg Neutrophils # Man (1.8-7.7) K/mm3 Band Neutrophils # K/mm3 Lymphocytes # (Manual) (1.2-5.4) K/mm3 Abs React Lymphs (Man) K/mm3 Monocytes # (Manual) (0.0-0.8) K/mm3 Eosinophils # (Manual) (0.0-0.4) K/mm3 Basophils # (Manual) (0.0-0.1) K/mm3 Metamyelocytes # K/mm3 Myelocytes # K/mm3 Promyelocytes # K/mm3 Blast Cells # K/mm3 WBC Morphology Hypersegmented Neuts Hyposegmented Neuts Hypogranular Neuts Smudge Cells Toxic Granulation Toxic Vacuolation Dohle Bodies Pelger-Huet Anomaly Clifford Rods Platelet Estimate Clumped Platelets Plt Clumps, EDTA Large Platelets Giant Platelets Platelet Satelliting Plt Morphology Comment RBC Morphology Dimorphic RBCs Polychromasia Hypochromasia Poikilocytosis Anisocytosis Microcytosis Macrocytosis Spherocytes Pappenheimer Bodies Sickle Cells Target Cells Tear Drop Cells Ovalocytes Helmet Cells Mario-Big Arm Bodies [place] Cells Bite Cells Crenated Cell Elliptocytes Acanthocytes (Spur) Rouleaux Hemoglobin C Crystals Schistocytes Malaria parasites Meliton Bodies Hem Pathologist Commnt PT (12.2-14.9) Sec. INR (0.87-1.13) APTT (24.2-36.6) Sec. D-Dimer (0-234) ng/mlDDU Sodium (137-145) mmol/L Potassium (3.6-5.0) mmol/L Chloride (98-107) mmol/L Carbon Dioxide (22-30) mmol/L Anion Gap mmol/L BUN (9-20) mg/dL Creatinine (0.8-1.3) mg/dL Estimated GFR ml/min BUN/Creatinine Ratio % Glucose 113 H (75-100) mg/dL Lactic Acid 0.80 (0.7-2.0) mmol/L Calcium (8.4-10.2) mg/dL Magnesium (1.7-2.3) mg/dL Ferritin 395.2 H (30.0-300.0) ng/mL Total Bilirubin (0.1-1.2) mg/dL AST (5-40) units/L ALT (7-56) units/L Alkaline Phosphatase (35-129) units/L Lactate Dehydrogenase 182 H (91-180) units/L Total Creatine Kinase (55-170) units/L Troponin T (0.00-0.029) ng/mL C-Reactive Protein 3.30 H (0.00-1.30) mg/dL Total Protein (6.3-8.2) g/dL Albumin (3.9-5) g/dL Albumin/Globulin Ratio % Salicylates (2.8-20.0) mg/dL Acetaminophen (10.0-30.0) ug/mL Valproic Acid (50-100) ug/mL 02/03/22 02/03/22 02/03/22 Range/Units 14:15 14:15 14:15 WBC (4.5-11.0) K/mm3 RBC (3.65-5.03) M/mm3 Hgb (11.8-15.2) gm/dl Hct (35.5-45.6) % MCV (84-94) fl MCH (28-32) pg MCHC (32-34) % RDW (13.2-15.2) % Plt Count (140-440) K/mm3 Add Manual Diff Total Counted Seg Neuts % (Manual) (40.0-70.0) % Band Neutrophils % % Lymphocytes % (Manual) (13.4-35.0) % Reactive Lymphs % (Man) % Monocytes % (Manual) (0.0-7.3) % Eosinophils % (Manual) (0.0-4.3) % Basophils % (Manual) (0.0-1.8) % Metamyelocytes % % Myelocytes % % Promyelocytes % % Blast Cells % % Nucleated RBC % Seg Neutrophils # Man (1.8-7.7) K/mm3 Band Neutrophils # K/mm3 Lymphocytes # (Manual) (1.2-5.4) K/mm3 Abs React Lymphs (Man) K/mm3 Monocytes # (Manual) (0.0-0.8) K/mm3 Eosinophils # (Manual) (0.0-0.4) K/mm3 Basophils # (Manual) (0.0-0.1) K/mm3 Metamyelocytes # K/mm3 Myelocytes # K/mm3 Promyelocytes # K/mm3 Blast Cells # K/mm3 WBC Morphology Hypersegmented Neuts Hyposegmented Neuts Hypogranular Neuts Smudge Cells Toxic Granulation Toxic Vacuolation Dohle Bodies Pelger-Huet Anomaly Clifford Rods Platelet Estimate Clumped Platelets Plt Clumps, EDTA Large Platelets Giant Platelets Platelet Satelliting Plt Morphology Comment RBC Morphology Dimorphic RBCs Polychromasia Hypochromasia Poikilocytosis Anisocytosis Microcytosis Macrocytosis Spherocytes Pappenheimer Bodies Sickle Cells Target Cells Tear Drop Cells Ovalocytes Helmet Cells Mario-Big Arm Bodies [place] Cells Bite Cells Crenated Cell Elliptocytes Acanthocytes (Spur) Rouleaux Hemoglobin C Crystals Schistocytes Malaria parasites Meliton Bodies Hem Pathologist Commnt PT (12.2-14.9) Sec. INR (0.87-1.13) APTT (24.2-36.6) Sec. D-Dimer (0-234) ng/mlDDU Sodium (137-145) mmol/L Potassium (3.6-5.0) mmol/L Chloride (98-107) mmol/L Carbon Dioxide (22-30) mmol/L Anion Gap mmol/L BUN (9-20) mg/dL Creatinine (0.8-1.3) mg/dL Estimated GFR ml/min BUN/Creatinine Ratio % Glucose (75-100) mg/dL Lactic Acid (0.7-2.0) mmol/L Calcium (8.4-10.2) mg/dL Magnesium (1.7-2.3) mg/dL Ferritin 400.9 H (30.0-300.0) ng/mL Total Bilirubin (0.1-1.2) mg/dL AST (5-40) units/L ALT (7-56) units/L Alkaline Phosphatase (35-129) units/L Lactate Dehydrogenase (91-180) units/L Total Creatine Kinase (55-170) units/L Troponin T (0.00-0.029) ng/mL C-Reactive Protein (0.00-1.30) mg/dL Total Protein (6.3-8.2) g/dL Albumin (3.9-5) g/dL Albumin/Globulin Ratio % Salicylates < 0.3 L (2.8-20.0) mg/dL Acetaminophen 5.0 L (10.0-30.0) ug/mL Valproic Acid < 2.8 L (50-100) ug/mL - EKG Data -: EKG Interpreted by Me EKG shows normal: sinus rhythm Rate: tachycardia - EKG Data 02/03/22 16:45 The EKG is interpreted at 14: 18 Sinus rhythm, tachycardia. Rate 106 bpm. Normal axis, normal P wave axis, left ventricular hypertrophy and motion artifact. This is an abnormal EKG. This is not a STEMI - Radiology Data Radiology results: pending, report reviewed, image reviewed CHEST 1 VIEW 02/03/2022 1:11 PM INDICATION / CLINICAL INFORMATION: Dyspnea. COMPARISON: None available. FINDINGS: SUPPORT DEVICES: None. HEART / MEDIAS TINUM: The heart size and pulmonary vasculature are normal. LUNGS / PLEURA: Mildly decreased lung volumes without acute pulmonary or pleural abnormality. No pneumothorax. ADDITIONAL FINDINGS: No significant additional findings. IMPRESSION: Mildly decreased lung volumes without other significant abnormality. Signer Name: Mohan Salomon MD Signed: 02/03/2022 12:26 PM Workstation Name: [employer] - Medical Decision Making Differential diagnosis, including but not limited to: COVID-19, pneumonia, respiratory failure Assessment and plan: 41-year-old gentleman with probable COVID-19 and acute hypoxic respiratory failure. Requires admission to the medical service for supplemental oxygen, supportive care, and steroids. Would not administer antibiotics at this time. He does not meet criteria for 1013 hold or involuntary confinement. He is agreeable to admission and hospitalization. Continue supplemental oxygen, nonrebreather, and steroids. Hospital physician, Dr. Gannon to admit patient to the medical service. Obtain COVID laboratory studies which are reviewed and appreciated. Critical Care Time: Yes Critical care time in (mins) excluding proc time.: 35 Critical care attestation.: If time is entered above; I have spent that time in minutes in the direct care of this critically ill patient, excluding procedure time. ED Disposition Clinical Impression: Acute respiratory failure with hypoxia, Suspected 2019-nCoV infection Disposition: ADMITTED INPATIENT Is pt being admited?: Yes Does the pt Need Aspirin: No Condition: Fair
[2022-02-03] MEDS ORDERED: ALBUTEROL 2.5 MG/3 ML NEBU IH ONE (12:52)
[2022-02-03] MEDS ORDERED: dexAMETHasone 4 MG/ML VIAL IV ONE (12:52)
--- NOTE | 2022-02-03 13:31 | XRay Report ---
CHEST 1 VIEW 02/03/2022 1:11 PM INDICATION / CLINICAL INFORMATION: Dyspnea. COMPARISON: None available. FINDINGS: SUPPORT DEVICES: None. HEART / MEDIASTINUM: The heart size and pulmonary vasculature are normal. LUNGS / PLEURA: Mildly decreased lung volumes without acute pulmonary or pleural abnormality. No pneu mothorax. ADDITIONAL FINDINGS: No significant additional findings. IMPRESSION: Mildly decreased lung volumes without other significant abnormality. Signer Name: Mohan Salomon MD Signed: 02/03/2022 1:26 PM Workstation Name: [employer]
[2022-02-03 14:28] LABS: Hemoglobin 15.2 gm/dl (11.8-15.2); Mean Corpuscular Volume 98 fl (84-94)
[2022-02-03 14:29] LABS: Mean Corpuscular HGB Conc 34 % (32-34); Platelet Count 169 K/mm3 (140-440); Red Cell Distribution Width 13.6 % (13.2-15.2)
[2022-02-03 14:34] LABS: INR 0.93 (0.87-1.13)
[2022-02-03 14:44] LABS: Alanine Aminotransferase 23 units/L (7-56); Albumin 4.1 g/dL (3.9-5); BUN/Creatinine Ratio 10; Blood Urea Nitrogen 8 mg/dL (9-20); Calcium 9.1 mg/dL (8.4-10.2); Hemolysis Index 9
[2022-02-03 15:02] LABS: C-Reactive Protein 3.3 mg/dL (0.00-1.30)
[2022-02-03 15:11] LABS: Anisocytosis 1+; Eosinophils % (Manual) 0 % (0.0-4.3); Platelet Estimate Consistent w Auto; Total Cells Counted 100
--- NOTE | 2022-02-03 16:54 | History and Physical Report ---
History of Present Illness Chief complaint: I cannot breathe History of present illness: 41 YO Male with HTN, Seizure DO, Schizophrenia, Nicotine Dependence presents ED for evaluation. Patient states "it is hard to breathe". Patient states that over the past 3 days he has experienced shortness of breath, decreased exercise tolerance, malaise, fatigue, body aches, diminished sense of smell, diminished sense of taste. EMS was notified and upon arrival the patient was found to be in distress and subsequently transported to [facility] for further care and evaluation of the aforementioned symptoms. The patient was seen and evaluated in the emergency department. All lab and imaging studies reviewed. Patient was found to have a pulse oximetry of 80% on room air which is consistent with acute hypoxemic respiratory failure. Patient found to have pneumonia on chest x-ray. Patient admitted to medical floor and initiated on pneumonia protocol as well as coronavirus protocol. Patient denies fever, chills, chest pain, palpitation, skin rash, recent contact, known exposure to COVID-19. No prior admission for review. All medication listed at time of admission for reconciliation. Advanced care planning conducted in ED. Past History Past Medical History: hypertension, stroke, other (See HPI) Past Surgical History: No surgical history, Other (Reviewed) Social history: single, smoking Family history: diabetes, hypertension Medications and Allergies Allergies Allergy/AdvReac Type Severity Reaction Status Date / Time No Known Allergies Allergy Verified 12/31/16 02:27 Home Medications Medication Instructions Recorded Confirmed Last Taken Type Benztropine 1 mg PO BID 12/30/16 12/03/21 Unknown History Furosemide 20 mg PO QDAY 12/30/16 12/03/21 Unknown History Hydrochlorothiazide 25 mg PO QDAY 12/30/16 12/03/21 Unknown History Lisinopril 40 mg PO DAILY 12/30/16 12/03/21 Unknown History Metoprolol SUCCINATE ER TAB 25 mg PO QDAY 12/30/16 12/03/21 Unknown History Phenytoin 200 mg PO QHS 12/30/16 12/03/21 Unknown History Phenytoin 300 mg PO QAM 12/30/16 12/03/21 Unknown History risperiDONE 3 mg PO BID 12/30/16 12/03/21 Unknown History traZODone 100 mg PO QHS 12/30/16 12/03/21 Unknown History Review of Systems Constitutional: weakness, malaise, lethargy Ears, nose, mouth and throat: no ear pain, no ear discharge, no tinnitis Cardiovascular: no chest pain, no rapid/irregular heart beat Respiratory: shortness of breath Gastrointestinal: no abdominal pain, no nausea, no diarrhea, no constipation Genitourinary Male: no hematuria, no flank pain Rectal: no pain, no incontinence, no bleeding Musculoskeletal: no neck stiffness, no neck pain, no arm numbness/tingling, no shooting leg pain Integumentary: no rash, no pruritis, no redness, no wounds, no jaundice Neurological: no head injury, no transient paralysis, no weakness, no numbness, no seizures Psychiatric: no anxiety, no change in sleep habits, no insomnia, no change in appetite, no change in libido Endocrine: no cold intolerance, no polyphagia, no polyuria Hematologic/Lymphatic: no easy bruising Allergic/Immunologic: no urticaria, no allergic rhinitis, no wheezing Exam - Constitutional Vitals: Temp Pulse Resp BP Pulse Ox 97.9 F 107 H 44 H 175/110 89 02/03/22 12:35 02/03/22 14:00 02/03/22 14:00 02/03/22 14:00 02/03/22 14:00 General appearance: Present: mild distress - EENT Eyes: Present: PERRL ENT: hearing intact, clear oral mucosa - Neck Neck: Present: supple, normal ROM - Respiratory Respiratory effort: labored, accessory muscle use Respiratory: bilateral: diminished, rhonchi - Cardiovascular Heart Sounds: Present: S1 & S2. Absent: rub, click - Extremities Extremities: pulses symmetrical, No edema Peripheral Pulses: within normal limits - Abdominal General gastrointestinal: Present: soft, non-tender, non-distended, normal bowel sounds Male genitourinary: Present: normal - Integumentary Integumentary: Present: clear, warm, dry - Musculoskeletal Musculoskeletal: gait normal, strength equal bilaterally - Psychiatric Psychiatric: appropriate mood/affect, intact judgment & insight - Neurologic Neurologic: CNII-XII intact, moves all extremities HEART Score - HEART Score Troponin: Troponin T < 0.010 ng/mL (0.00-0.029) 02/03/22 12:52 Results - Labs CBC & Chem 7: 02/03/22 12:52 02/03/22 13:00 Labs: Abnormal lab results 02/03/22 02/03/22 02/03/22 Range/Units 12:52 12:52 13:00 MCV 98 H (84-94) fl MCH 33 H (28-32) pg Seg Neuts % (Manual) 82.0 H (40.0-70.0) % Lymphocytes % (Manual) 8.0 L (13.4-35.0) % Monocytes % (Manual) 9.0 H (0.0-7.3) % Lymphocytes # (Manual) 0.6 L (1.2-5.4) K/mm3 BUN 8 L (9-20) mg/dL Glucose 116 H 113 H (75-100) mg/dL Ferritin (30.0-300.0) ng/mL Lactate Dehydrogenase 193 H 182 H (91-180) units/L Total Creatine Kinase 534 H (55-170) units/L C-Reactive Protein 3.30 H 3.30 H (0.00-1.30) mg/dL Salicylates (2.8-20.0) mg/dL Acetaminophen (10.0-30.0) ug/mL Valproic Acid (50-100) ug/mL 02/03/22 02/03/22 02/03/22 Range/Units 13:00 14:15 14:15 MCV (84-94) fl MCH (28-32) pg Seg Neuts % (Manual) (40.0-70.0) % Lymphocytes % (Manual) (13.4-35.0) % Monocytes % (Manual) (0.0-7.3) % Lymphocytes # (Manual) (1.2-5.4) K/mm3 BUN (9-20) mg/dL Glucose (75-100) mg/dL Ferritin 395.2 H 400.9 H (30.0-300.0) ng/mL Lactate Dehydrogenase (91-180) units/L Total Creatine Kinase (55-170) units/L C-Reactive Protein (0.00-1.30) mg/dL Salicylates < 0.3 L (2.8-20.0) mg/dL Acetaminophen (10.0-30.0) ug/mL Valproic Acid < 2.8 L (50-100) ug/mL 02/03/22 Range/Units 14:15 MCV (84-94) fl MCH (28-32) pg Seg Neuts % (Manual) (40.0-70.0) % Lymphocytes % (Manual) (13.4-35.0) % Monocytes % (Manual) (0.0-7.3) % Lymphocytes # (Manual) (1.2-5.4) K/mm3 BUN (9-20) mg/dL Glucose (75-100) mg/dL Ferritin (30.0-300.0) ng/mL Lactate Dehydrogenase (91-180) units/L Total Creatine Kinase (55-170) units/L C-Reactive Protein (0.00-1.30) mg/dL Salicylates (2.8-20.0) mg/dL Acetaminophen 5.0 L (10.0-30.0) ug/mL Valproic Acid (50-100) ug/mL Assessment and Plan - Patient Problems (1) Acute respiratory failure with hypoxia Current Visit: Yes Status: Acute Plan to address problem: Chest x-ray, supplemental oxygen, pulse oximetry, nebulizer therapy, pulmonary toilet. Noninvasive positive pressure ventilation as clinically indicated. (2) Pneumonia Current Visit: Yes Status: Acute Plan to address problem: Pneumonia protocol: Chest x-ray, IV antibiotic therapy, supplemental oxygen, pulse oximetry, blood culture. (3) Obesity hypoventilation syndrome Current Visit: Yes Status: Acute Plan to address problem: Balanced diet, increase physical activity discharge. (4) Suspected 2019-nCoV infection Current Visit: Yes Status: Acute Plan to address problem: Coronavirus protocol: IV antibiotic therapy, IV steroid therapy, vitamin C therapy, vitamin D therapy, zinc therapy, prophylactic anticoagulation, infectious disease service consulted. (5) DVT prophylaxis Current Visit: Yes Status: Acute Plan to address problem: SCD to bilateral lower extremities while in bed, prophylactic anticoagulation. (6) Advance care planning Current Visit: Yes Status: Acute Plan to address problem: Disease education done, care plan discussed, diagnoses discussed, prognosis discussed, patient is full code. Patient knowledges understanding agreement w ith care plan, +30 minutes. (7) Preventative health care Current Visit: Yes Status: Acute Plan to address problem: Patient counseled regarding vaccination booster, balanced diet, increase physical activity discharge, outpatient follow-up with primary care physician for all age and risk factor appropriate screening test. +30 minutes.
[2022-02-03] MEDS ORDERED: oxyCODONE /ACETAMINOPHEN 5-325MG TAB PO PRN (16:55)
[2022-02-03] MEDS ORDERED: ACETAMINOPHEN 325 MG TAB PO PRN (16:55)
[2022-02-03] MEDS ORDERED: HYDROmorphone 0.5 MG/0.5 ML INJ IV PRN (16:55)
[2022-02-03] MEDS ORDERED: ONDANSETRON 4 MG/2 ML INJ IV PRN (16:55)
[2022-02-03] MEDS ORDERED: ALBUTEROL 2.5 MG/3 ML NEBU IH PRN (16:55)
[2022-02-03 18:38] LABS: C-Reactive Protein 3.7 mg/dL (0.00-1.30)
[2022-02-03 18:39] LABS: C-Reactive Protein 3.6 mg/dL (0.00-1.30)
[2022-02-03] MEDS ORDERED: PHENYTOIN 100 MG CAPSULE.ER PO SCH (22:00)
[2022-02-03] MEDS ORDERED: traZODone 100 MG TAB PO SCH (22:00)
[2022-02-03] MEDS: risperiDONE 1 MG TAB PO SCH (22:15)
[2022-02-03] MEDS: FAMOTIDINE 10 MG TAB PO SCH (22:15)
[2022-02-03] MEDS: methylPREDNISolone Sod Succinate 40 MG/1 ML INJ IV SCH (22:15)
[2022-02-03] MEDS: HEPARIN 5,000 UNIT/1 ML VIAL SUB-Q SCH (22:16)
[2022-02-03] MEDS: ASCORBIC ACID 500 MG TAB PO SCH (22:16)
[2022-02-03] MEDS: ZINC SULFATE 220 MG CAP PO SCH (22:16)
[2022-02-03] MEDS: BENZTROPINE 1 MG TAB PO SCH (22:52)
[2022-02-04] MEDS: methylPREDNISolone Sod Succinate 40 MG/1 ML INJ IV SCH ×2 (05:49→15:04)
[2022-02-04 08:48] LABS: Alanine Aminotransferase 21 units/L (7-56); Albumin 4.3 g/dL (3.9-5); Blood Urea Nitrogen 10 mg/dL (9-20); Calcium 9.1 mg/dL (8.4-10.2); Hemolysis Index 7
[2022-02-04 09:16] LABS: Hematocrit 46.3 % (35.5-45.6); Hemoglobin 15.3 gm/dl (11.8-15.2); Red Blood Count 4.66 M/mm3 (3.65-5.03)
[2022-02-04] MEDS: ASCORBIC ACID 500 MG TAB PO SCH (09:16)
[2022-02-04] MEDS: risperiDONE 1 MG TAB PO SCH (09:16)
[2022-02-04] MEDS: HEPARIN 5,000 UNIT/1 ML VIAL SUB-Q SCH (09:16)
[2022-02-04] MEDS: ZINC SULFATE 220 MG CAP PO SCH (09:16)
[2022-02-04] MEDS: FAMOTIDINE 10 MG TAB PO SCH (09:16)
[2022-02-04 09:17] LABS: Basophils % (Auto) 0.5 % (0.0-1.8); Lymphocytes # (Auto) 0.7 K/mm3 (1.2-5.4); Lymphocytes % (Auto) 9.4 % (13.4-35.0); Mean Corpuscular HGB Conc 33 % (32-34); Mean Corpuscular Volume 99 fl (84-94); Mean Platelet Volume 10.8 fl (6-12); Monocytes # (Auto) 0.6 K/mm3 (0.0-0.8); Monocytes % (Auto) 7.5 % (0.0-7.3); Platelet Count 188 K/mm3 (140-440); Red Cell Distribution Width 13.4 % (13.2-15.2)
[2022-02-04 09:25] LABS: BUN/Creatinine Ratio 14
[2022-02-04] MEDS: BENZTROPINE 1 MG TAB PO SCH (09:27)
[2022-02-04] MEDS ORDERED: CHOLECALCIFEROL (VIT D3) 400 UNIT TAB PO SCH (10:00)
[2022-02-04] MEDS ORDERED: LISINOPRIL 40 MG TAB PO SCH (10:00)
[2022-02-04] MEDS ORDERED: CHOLECALCIFEROL (VIT D3) 1000 UNIT (25 mcg) TAB PO SCH (10:00)
[2022-02-04] MEDS ORDERED: FUROSEMIDE 20 MG TAB PO SCH (10:00)
[2022-02-04] MEDS ORDERED: hydroCHLOROthiazide 25 MG TAB PO SCH (10:00)
[2022-02-04] MEDS ORDERED: METOPROLOL SUCCINATE XL 25 MG TAB PO SCH (10:00)
[2022-02-04] MEDS ORDERED: REMDESIVIR 200 MG in SODIUM CHLORIDE 0.9% 250ML 250 ML IV ONE (12:03)
--- NOTE | 2022-02-04 12:06 | Consultation ---
History of Present Illness - Reason for Consult Consult date: 02/04/22 PUI Requesting physician: FARHAN WOODS - History of Present Illness The patient is a 41-year-old male with hypertension, schizophrenia, tobacco abuse, seizure disorder admitted to the hospital with complaints of shortness of breath, body aches, fatigue over the last 3 days. Upon evaluation in the ED, noted to have hypoxia, saturating 80% on room air. Chest x-ray showed possible pneumonia. Admitted to the hospital as COVID-19 PUI. Infectious diseases was consulted for additional evaluation. No fever on admission. Labs so far have revealed normal WBC, normal platelet count, D-dimer 177, procalcitonin 0.05, CRP 3.6, LDH 182, ferritin 400. COVID-19 PCR is pending. Review of Systems: reviewed in the chart, unable to obtain, minimize risk of transmission Past History Past Medical History: hypertension, stroke, other (See HPI) Past Surgical History: No surgical history, Other (Reviewed) Social history: single, smoking Family history: diabetes, hypertension Medications and Allergies Allergies Allergy/AdvReac Type Severity Reaction Status Date / Time No Known Allergies Allergy Verified 12/31/16 02:27 Home Medications Medication Instructions Recorded Confirmed Last Taken Type Benztropine 1 mg PO BID 12/30/16 02/04/22 Unknown History Furosemide 20 mg PO QDAY 12/30/16 02/04/22 Unknown History Hydrochlorothiazide 25 mg PO QDAY 12/30/16 02/04/22 Unknown History Lisinopril 40 mg PO DAILY 12/30/16 02/04/22 Unknown History Metoprolol SUCCINATE ER TAB 25 mg PO QDAY 12/30/16 02/04/22 Unknown History Phenytoin 200 mg PO QHS 12/30/16 02/04/22 Unknown History Phenytoin 300 mg PO QAM 12/30/16 02/04/22 Unknown History risperiDONE 3 mg PO BID 12/30/16 02/04/22 Unknown History traZODone 100 mg PO QHS 12/30/16 02/04/22 Unknown History Amlodipine Besylate [Norvasc] 10 mg PO DAILY 02/04/22 02/04/22 Unknown History Divalproex ER [DepaKOTE ER] 500 mg PO HS 02/04/22 02/04/22 Unknown History metFORMIN [Glucophage] 500 mg PO BIDWM 02/04/22 02/04/22 Unknown History Active Meds: Active Medications Acetaminophen (Acetaminophen 325 Mg Tab) 650 mg PO Q4H PRN PRN Reason: Pain MILD(1-3)/Fever >100.5/FANG Albuterol (Albuterol 2.5 Mg/3 Ml Nebu) 2.5 mg IH Q4HRT PRN PRN Reason: Shortness Of Breath Ascorbic Acid (Ascorbic Acid 500 Mg Tab) 500 mg PO BID [facility] Last Admin: 02/04/22 09:16 Dose: 500 mg Benztropine Mesylate (Benztropine 1 Mg Tab) 1 mg PO BID [facility] Last Admin: 02/04/22 09:27 Dose: 1 mg Cholecalciferol (Cholecalciferol (Vit D3) 1000 Unit (25 Mcg) Tab) 1,000 unit PO QDAY [facility] Last Admin: 02/04/22 09:17 Dose: 1,000 unit Famotidine (Famotidine 10 Mg Tab) 10 mg PO BID [facility] Last Admin: 02/04/22 09:16 Dose: 10 mg Furosemide (Furosemide 20 Mg Tab) 20 mg PO QDAY [facility] Last Admin: 02/04/22 09:17 Dose: 20 mg Guaifenesin (Guaifenesin 100 Mg/5 Ml Oral Liqd) 200 mg PO Q4H PRN PRN Reason: Cough Heparin Sodium (Porcine) (Heparin 5,000 Unit/1 Ml Vial) 5,000 unit SUB-Q Q12HR [facility] Last Admin: 02/04/22 09:16 Dose: 5,000 unit Hydrochlorothiazide (Hydrochlorothiazide 25 Mg Tab) 25 mg PO QDAY [facility] Last Admin: 02/04/22 09:16 Dose: 25 mg Hydromorphone HCl (Hydromorphone 0.5 Mg/0.5 Ml Inj) 0.5 mg IV Q13H PRN PRN Reason: Pain , Severe (7-10) Lisinopril (Lisinopril 40 Mg Tab) 40 mg PO DAILY [facility] Last Admin: 02/04/22 09:17 Dose: 40 mg Methylprednisolone Sodium Succinate (Methylprednisolone Sod Succinate 40 Mg/1 Ml Inj) 40 mg IV Q8HR [facility] Last Admin: 02/04/22 05:49 Dose: 40 mg Metoprolol Succinate (Metoprolol Succinate Xl 25 Mg Tab) 25 mg PO QDAY [facility] Last Admin: 02/04/22 09:17 Dose: 25 mg Ondansetron HCl (Ondansetron 4 Mg/2 Ml Inj) 4 mg IV Q8H PRN PRN Reason: Nausea And Vomiting Oxycodone/Acetaminophen (Oxycodone /Acetaminophen 5-325mg Tab) 1 tab PO Q6H PRN PRN Reason: Pain, Moderate (4-6) Phenytoin (Phenytoin 100 Mg Capsule.Er) 200 mg PO QHS [facility] Last Admin: 02/03/22 22:16 Dose: 200 mg Risperidone (Risperidone 1 Mg Tab) 3 mg PO BID [facility] Last Admin: 02/04/22 09:16 Dose: 3 mg Sodium Chloride (Sodium Chloride 0.9% 10 Ml Flush Syringe) 10 ml IV BID [facility] Last Admin: 02/04/22 09:17 Dose: 10 ml Sodium Chloride (Sodium Chloride 0.9% 10 Ml Flush Syringe) 10 ml IV PRN PRN PRN Reason: LINE FLUSH Trazodone HCl (Trazodone 100 Mg Tab) 100 mg PO QHS [facility] Last Admin: 02/03/22 22:16 Dose: 100 mg Zinc Sulfate (Zinc Sulfate 220 Mg Cap) 220 mg PO BID [facility] Last Admin: 02/04/22 09:16 Dose: 220 mg Physical Examination - Physical Exam Narrative exam: Physical Exam (reviewed in chart to minimize risk of transmission) Constitutional: deferred Head, Ears, Nose: deferred Eyes: deferred Neck: deferred Oral: deferred Cardiovascular: deferred Respiratory: deferred GI: deferred Musculoskeletal: deferred Skin: deferred Hem/Lymphatic: deferred Psych: deferred Neurological: deferred - Constitutional Vitals: Vital Signs Temp Pulse Resp BP Pulse Ox 98.6 F 111 H 20 172/103 95 02/03/22 21:55 02/03/22 23:13 02/03/22 23:13 02/03/22 21:55 02/04/22 10:00 Temperature -Last 24 Hours Temperature 98.6 F Temperature 97.9 F Results - Labs CBC & Chem 7: 02/04/22 08:07 02/04/22 08:07 Labs: Abnormal lab results 02/03/22 02/03/22 02/03/22 Range/Units 12:52 12:52 13:00 Hgb (11.8-15.2) gm/dl Hct (35.5-45.6) % MCV 98 H (84-94) fl MCH 33 H (28-32) pg Lymph % (Auto) (13.4-35.0) % [place] % (Auto) (0.0-7.3) % Lymph # (Auto) (1.2-5.4) K/mm3 Seg Neutrophils % (40.0-70.0) % Seg Neuts % (Manual) 82.0 H (40.0-70.0) % Lymphocytes % (Manual) 8.0 L (13.4-35.0) % Monocytes % (Manual) 9.0 H (0.0-7.3) % Lymphocytes # (Manual) 0.6 L (1.2-5.4) K/mm3 Carbon Dioxide (22-30) mmol/L BUN 8 L (9-20) mg/dL Creatinine (0.8-1.3) mg/dL Glucose 116 H 113 H (75-100) mg/dL POC Glucose (70-105) mg/dL Ferritin (30.0-300.0) ng/mL Lactate Dehydrogenase 193 H 182 H (91-180) units/L Total Creatine Kinase 534 H (55-170) units/L C-Reactive Protein 3.30 H 3.30 H (0.00-1.30) mg/dL Salicylates (2.8-20.0) mg/dL Acetaminophen (10.0-30.0) ug/mL Valproic Acid (50-100) ug/mL 02/03/22 02/03/22 02/03/22 Range/Units 13:00 14:15 14:15 Hgb (11.8-15.2) gm/dl Hct (35.5-45.6) % MCV (84-94) fl MCH (28-32) pg Lymph % (Auto) (13.4-35.0) % Imperial % (Auto) (0.0-7.3) % Lymph # (Auto) (1.2-5.4) K/mm3 Seg Neutrophils % (40.0-70.0) % Seg Neuts % (Manual) (40.0-70.0) % Lymphocytes % (Manual) (13.4-35.0) % Monocytes % (Manual) (0.0-7.3) % Lymphocytes # (Manual) (1.2-5.4) K/mm3 Carbon Dioxide (22-30) mmol/L BUN (9-20) mg/dL Creatinine (0.8-1.3) mg/dL Glucose (75-100) mg/dL POC Glucose (70-105) mg/dL Ferritin 395.2 H 400.9 H (30.0-300.0) ng/mL Lactate Dehydrogenase (91-180) units/L Total Creatine Kinase (55-170) units/L C-Reactive Protein (0.00-1.30) mg/dL Salicylates < 0.3 L (2.8-20.0) mg/dL Acetaminophen (10.0-30.0) ug/mL Valproic Acid < 2.8 L (50-100) ug/mL 02/03/22 02/03/22 02/03/22 Range/Units 14:15 17:32 17:32 Hgb (11.8-15.2) gm/dl Hct (35.5-45.6) % MCV (84-94) fl MCH (28-32) pg Lymph % (Auto) (13.4-35.0) % Imperial % (Auto) (0.0-7.3) % Lymph # (Auto) (1.2-5.4) K/mm3 Seg Neutrophils % (40.0-70.0) % Seg Neuts % (Manual) (40.0-70.0) % Lymphocytes % (Manual) (13.4-35.0) % Monocytes % (Manual) (0.0-7.3) % Lymphocytes # (Manual) (1.2-5.4) K/mm3 Carbon Dioxide (22-30) mmol/L BUN (9-20) mg/dL Creatinine (0.8-1.3) mg/dL Glucose (75-100) mg/dL POC Glucose (70-105) mg/dL Ferritin (30.0-300.0) ng/mL Lactate Dehydrogenase 182 H (91-180) units/L Total Creatine Kinase (55-170) units/L C-Reactive Protein 3.70 H 3.60 H (0.00-1.30) mg/dL Salicylates (2.8-20.0) mg/dL Acetaminophen 5.0 L (10.0-30.0) ug/mL Valproic Acid (50-100) ug/mL 02/03/22 02/04/22 02/04/22 Range/Units 21:55 07:38 08:07 Hgb 15.3 H (11.8-15.2) gm/dl Hct 46.3 H (35.5-45.6) % MCV 99 H (84-94) fl MCH 33 H (28-32) pg Lymph % (Auto) 9.4 L (13.4-35.0) % Imperial % (Auto) 7.5 H (0.0-7.3) % Lymph # (Auto) 0.7 L (1.2-5.4) K/mm3 Seg Neutrophils % 82.6 H (40.0-70.0) % Seg Neuts % (Manual) (40.0-70.0) % Lymphocytes % (Manual) (13.4-35.0) % Monocytes % (Manual) (0.0-7.3) % Lymphocytes # (Manual) (1.2-5.4) K/mm3 Carbon Dioxide (22-30) mmol/L BUN (9-20) mg/dL Creatinine (0.8-1.3) mg/dL Glucose (75-100) mg/dL POC Glucose 142 H 218 H (70-105) mg/dL Ferritin (30.0-300.0) ng/mL Lactate Dehydrogenase (91-180) units/L Total Creatine Kinase (55-170) units/L C-Reactive Protein (0.00-1.30) mg/dL Salicylates (2.8-20.0) mg/dL Acetaminophen (10.0-30.0) ug/mL Valproic Acid (50-100) ug/mL 02/04/22 02/04/22 Range/Units 08:07 11:17 Hgb (11.8-15.2) gm/dl Hct (35.5-45.6) % MCV (84-94) fl MCH (28-32) pg Lymph % (Auto) (13.4-35.0) % Imperial % (Auto) (0.0-7.3) % Lymph # (Auto) (1.2-5.4) K/mm3 Seg Neutrophils % (40.0-70.0) % Seg Neuts % (Manual) (40.0-70.0) % Lymphocytes % (Manual) (13.4-35.0) % Monocytes % (Manual) (0.0-7.3) % Lymphocytes # (Manual) (1.2-5.4) K/mm3 Carbon Dioxide 31 H (22-30) mmol/L BUN (9-20) mg/dL Creatinine 0.7 L (0.8-1.3) mg/dL Glucose 190 H (75-100) mg/dL POC Glucose 148 H (70-105) mg/dL Ferritin (30.0-300.0) ng/mL Lactate Dehydrogenase (91-180) units/L Total Creatine Kinase (55-170) units/L C-Reactive Protein (0.00-1.30) mg/dL Salicylates (2.8-20.0) mg/dL Acetaminophen (10.0-30.0) ug/mL Valproic Acid (50-100) ug/mL - Imaging and Cardiology Chest x-ray: report reviewed, image reviewed (low volumes b/l ) Assessment and Plan Cultures: SARS CoV2 PCR: Pending 02/03/2022 blood culture: In process A/P: 41-year-old male with hypertension, schizophrenia, tobacco abuse, seizure disorder admitted to the hospital with complaints of shortness of breath, body aches, fatigue over the last 3 days: #Bilateral pneumonia: Probably from COVID-19. Labs so far have revealed normal WBC, normal platelet count, D-dimer 177, procalcitonin 0.05, CRP 3.6, LDH 182, ferritin 400. COVID-19 PCR is pending. #Acute hypoxic respiratory failure: On nasal cannula. Initially required NRB. #Obesity Recs: -Already on steroids, if COVID positive, switch to Decadron 6 mg daily -IV remdesivir x 5 days added for now given high suspicion for COVID-19, if COVID is negative, discontinue -prophylactic anticoagulation based on d-dimer per hospital protocol -procalcitonin is low, abx not needed -trend ferritin, d-dimer, CRP every 2-3 days [place] MD, FACP, [facility] O: [phone] F: [phone] C: [phone]
--- NOTE | 2022-02-04 12:15 | Progress Note ---
Assessment and Plan Assessment and plan: 41-year-old male with past medical history of hypertension, schizophrenia, tobacco abuse and seizure disorder was admitted through the emergency department with complaints of shortness of breath, fatigue and body aches x3 days. Patient was admitted with diagnosis below Acute hypoxic respiratory failure Bilateral pneumonia Suspected COVID-19 Obesity hypoventilation syndrome Morbid obesity 02/04/2022. Patient currently on steroids and if found to be COVID-positive we will switch to Decadron 6 mg daily. IV remdesivir x5 days added for now given high suspicion for COVID-19 per ID recommendations. Procalcitonin was low, therefore antibiotics discontinued. Continue to trend inflammatory markers. No anticoagulation at this time given normal D-dimer. Patient initially required nonrebreather on admission for oxygen supplementation. However, now patient with 4 L O2 satting at 96%. Pulmonary consultation as needed History Interval history: No new issues overnight Hospitalist Physical - Constitutional Vitals: Temp Pulse Resp BP Pulse Ox 98.6 F 111 H 20 172/103 95 02/03/22 21:55 02/03/22 23:13 02/03/22 23:13 02/03/22 21:55 02/04/22 10:00 General appearance: Present: no acute distress - EENT Eyes: Present: PERRL, EOM intact ENT: hearing intact, clear oral mucosa, dentition normal - Neck Neck: Present: supple, normal ROM - Respiratory Respiratory effort: normal Respiratory: bilateral: CTA - Cardiovascular Rhythm: regular Heart Sounds: Present: S1 & S2. Absent: gallop, rub - Extremities Extremities: no ischemia, No edema, Full ROM - Abdominal General gastrointestinal: soft, non-tender, non-distended, normal bowel sounds - Integumentary Integumentary: Present: clear, warm, dry - Neurologic Neurologic: CNII-XII intact, moves all extremities HEART Score - HEART Score Troponin: Troponin T < 0.010 ng/mL (0.00-0.029) 02/03/22 12:52 Results - Labs CBC & Chem 7: 02/04/22 08:07 02/04/22 08:07 Labs: Laboratory Last Values WBC 7.3 K/mm3 (4.5-11.0) 02/04/22 08:07 RBC 4.66 M/mm3 (3.65-5.03) 02/04/22 08:07 Hgb 15.3 gm/dl (11.8-15.2) H 02/04/22 08:07 Hct 46.3 % (35.5-45.6) H 02/04/22 08:07 MCV 99 fl (84-94) H 02/04/22 08:07 MCH 33 pg (28-32) H 02/04/22 08:07 MCHC 33 % (32-34) 02/04/22 08:07 RDW 13.4 % (13.2-15.2) 02/04/22 08:07 Plt Count 188 K/mm3 (140-440) 02/04/22 08:07 Lymph % (Auto) 9.4 % (13.4-35.0) L 02/04/22 08:07 [place] % (Auto) 7.5 % (0.0-7.3) H 02/04/22 08:07 Eos % (Auto) 0.0 % (0.0-4.3) 02/04/22 08:07 Baso % (Auto) 0.5 % (0.0-1.8) 02/04/22 08:07 Lymph # (Auto) 0.7 K/mm3 (1.2-5.4) L 02/04/22 08:07 [place] # (Auto) 0.6 K/mm3 (0.0-0.8) 02/04/22 08:07 Eos # (Auto) 0.0 K/mm3 (0.0-0.4) 02/04/22 08:07 Baso # (Auto) 0.0 K/mm3 (0.0-0.1) 02/04/22 08:07 Add Manual Diff Complete 02/03/22 12:52 Total Counted 100 02/03/22 12:52 Seg Neutrophils % 82.6 % (40.0-70.0) H 02/04/22 08:07 Seg Neuts % (Manual) 82.0 % (40.0-70.0) H 02/03/22 12:52 Band Neutrophils % 0 % 02/03/22 12:52 Lymphocytes % (Manual) 8.0 % (13.4-35.0) L 02/03/22 12:52 Reactive Lymphs % (Man) 0 % 02/03/22 12:52 Monocytes % (Manual) 9.0 % (0.0-7.3) H 02/03/22 12:52 Eosinophils % (Manual) 0 % (0.0-4.3) 02/03/22 12:52 Basophils % (Manual) 1.0 % (0.0-1.8) 02/03/22 12:52 Metamyelocytes % 0 % 02/03/22 12:52 Myelocytes % 0 % 02/03/22 12:52 Promyelocytes % 0 % 02/03/22 12:52 Blast Cells % 0 % 02/03/22 12:52 Nucleated RBC % Not Reportable 02/03/22 12:52 Seg Neutrophils # 6.1 K/mm3 (1.8-7.7) 02/04/22 08:07 Seg Neutrophils # Man 6.0 K/mm3 (1.8-7.7) 02/03/22 12:52 Band Neutrophils # 0.0 K/mm3 02/03/22 12:52 Lymphocytes # (Manual) 0.6 K/mm3 (1.2-5.4) L 02/03/22 12:52 Abs React Lymphs (Man) 0.0 K/mm3 02/03/22 12:52 Monocytes # (Manual) 0.7 K/mm3 (0.0-0.8) 02/03/22 12:52 Eosinophils # (Manual) 0.0 K/mm3 (0.0-0.4) 02/03/22 12:52 Basophils # (Manual) 0.1 K/mm3 (0.0-0.1) 02/03/22 12:52 Metamyelocytes # 0.0 K/mm3 02/03/22 12:52 Myelocytes # 0.0 K/mm3 02/03/22 12:52 Promyelocytes # 0.0 K/mm3 02/03/22 12:52 Blast Cells # 0.0 K/mm3 02/03/22 12:52 WBC Morphology Not Reportable 02/03/22 12:52 Hypersegmented Neuts Not Reportable 02/03/22 12:52 Hyposegmented Neuts Not Reportable 02/03/22 12:52 Hypogranular Neuts Not Reportable 02/03/22 12:52 Smudge Cells Not Reportable 02/03/22 12:52 Toxic Granulation Not Reportable 02/03/22 12:52 Toxic Vacuolation Not Reportable 02/03/22 12:52 Dohle Bodies Not Reportable 02/03/22 12:52 Pelger-Huet Anomaly Not Reportable 02/03/22 12:52 Clifford Rods Not Reportable 02/03/22 12:52 Platelet Estimate Consistent w auto 02/03/22 12:52 Clumped Platelets Not Reportable 02/03/22 12:52 Plt Clumps, EDTA Not Reportable 02/03/22 12:52 Large Platelets Not Reportable 02/03/22 12:52 Giant Platelets Not Reportable 02/03/22 12:52 Platelet Satelliting Not Reportable 02/03/22 12:52 Plt Morphology Comment Not Reportable 02/03/22 12:52 RBC Morphology Not Reportable 02/03/22 12:52 Dimorphic RBCs Not Reportable 02/03/22 12:52 Polychromasia Not Reportable 02/03/22 12:52 Hypochromasia Not Reportable 02/03/22 12:52 Poikilocytosis Not Reportable 02/03/22 12:52 Anisocytosis 1+ 02/03/22 12:52 Microcytosis Not Reportable 02/03/22 12:52 Macrocytosis Not Reportable 02/03/22 12:52 Spherocytes Not Reportable 02/03/22 12:52 Pappenheimer Bodies Not Reportable 02/03/22 12:52 Sickle Cells Not Reportable 02/03/22 12:52 Target Cells Not Reportable 02/03/22 12:52 Tear Drop Cells Not Reportable 02/03/22 12:52 Ovalocytes Not Reportable 02/03/22 12:52 Helmet Cells Not Reportable 02/03/22 12:52 Mario-Granite Bodies Not Reportable 02/03/22 12:52 [place] Rings Not Reportable 02/03/22 12:52 Tashi Cells Not Reportable 02/03/22 12:52 Bite Cells Not Reportable 02/03/22 12:52 Crenated Cell Not Reportable 02/03/22 12:52 Elliptocytes Not Reportable 02/03/22 12:52 Acanthocytes (Spur) Not Reportable 02/03/22 12:52 Rouleaux Not Reportable 02/03/22 12:52 Hemoglobin C Crystals Not Reportable 02/03/22 12:52 Schistocytes Not Reportable 02/03/22 12:52 Malaria parasites Not Reportable 02/03/22 12:52 Meliton Bodies Not Reportable 02/03/22 12:52 Hem Pathologist Commnt No 02/03/22 12:52 PT 13.5 Sec. (12.2-14.9) 02/03/22 12:52 INR 0.93 (0.87-1.13) 02/03/22 12:52 APTT 32.0 Sec. (24.2-36.6) 02/03/22 12:52 D-Dimer 177.10 ng/mlDDU (0-234) 02/03/22 17:32 D-Dimer 192.57 ng/mlDDU (0-234) 02/03/22 17:32 Sodium 137 mmol/L (137-145) 02/04/22 08:07 Potassium 4.7 mmol/L (3.6-5.0) 02/04/22 08:07 Chloride 99.3 mmol/L (98-107) 02/04/22 08:07 Carbon Dioxide 31 mmol/L (22-30) H 02/04/22 08:07 Anion Gap 11 mmol/L 02/04/22 08:07 BUN 10 mg/dL (9-20) 02/04/22 08:07 Creatinine 0.7 mg/dL (0.8-1.3) L 02/04/22 08:07 Estimated GFR > 60 ml/min 02/04/22 08:07 BUN/Creatinine Ratio 14 % 02/04/22 08:07 Glucose 190 mg/dL (75-100) H 02/04/22 08:07 POC Glucose 148 mg/dL (70-105) H 02/04/22 11:17 Lactic Acid 0.80 mmol/L (0.7-2.0) 02/03/22 14:15 Calcium 9.1 mg/dL (8.4-10.2) 02/04/22 08:07 Magnesium 2.10 mg/dL (1.7-2.3) 02/03/22 12:52 Ferritin 400.9 ng/mL (30.0-300.0) H 02/03/22 14:15 Total Bilirubin 0.50 mg/dL (0.1-1.2) 02/04/22 08:07 AST 17 units/L (5-40) 02/04/22 08:07 ALT 21 units/L (7-56) 02/04/22 08:07 Alkaline Phosphatase 53 units/L (35-129) 02/04/22 08:07 Lactate Dehydrogenase 178 units/L (91-180) 02/03/22 17:32 Lactate Dehydrogenase 182 units/L (91-180) H 02/03/22 17:32 Total Creatine Kinase 534 units/L (55-170) H 02/03/22 12:52 Troponin T < 0.010 ng/mL (0.00-0.029) 02/03/22 12:52 C-Reactive Protein 3.60 mg/dL (0.00-1.30) H 02/03/22 17:32 C-Reactive Protein 3.70 mg/dL (0.00-1.30) H 02/03/22 17:32 Total Protein 7.6 g/dL (6.3-8.2) 02/04/22 08:07 Albumin 4.3 g/dL (3.9-5) 02/04/22 08:07 Albumin/Globulin Ratio 1.3 % 02/04/22 08:07 Procalcitonin < 0.05 ng/mL (<0.15) 02/03/22 17:32 Salicylates < 0.3 mg/dL (2.8-20.0) L 02/03/22 14:15 Acetaminophen 5.0 ug/mL (10.0-30.0) L 02/03/22 14:15 Valproic Acid < 2.8 ug/mL (50-100) L 02/03/22 14:15 Microbiology: Microbiology 02/03/22 14:16 Peripheral/Venous Blood Culture - Preliminary Culture in Progress 02/03/22 14:16 Peripheral/Venous Blood Culture - Preliminary Culture in Progress Goldstein/IV: Voiding Method Toilet Active Medications - Current Medications Current Medications: Generic Name Dose Route Start Last Admin Trade Name Freq PRN Reason Stop Dose Admin Acetaminophen 650 mg 02/03/22 16:55 Acetaminophen 325 Mg Tab PO Q4H PRN Pain MILD(1-3)/Fever >100.5/FANG Albuterol 2.5 mg 02/03/22 16:55 Albuterol 2.5 Mg/3 Ml Nebu IH Q4HRT PRN Shortness Of Breath Ascorbic Acid 500 mg 02/03/22 22:00 02/04/22 09:16 Ascorbic Acid 500 Mg Tab PO 500 mg BID BRYN Administration Benztropine Mesylate 1 mg 02/03/22 22:00 02/04/22 09:27 Benztropine 1 Mg Tab PO 1 mg BID BRYN Administration Cholecalciferol 1,000 unit 02/04/22 10:00 02/04/22 09:17 Cholecalciferol (Vit D3) 1000 Unit (25 Mcg) Tab PO 1,000 unit QDAY BRYN Administration Famotidine 10 mg 02/03/22 22:00 02/04/22 09:16 Famotidine 10 Mg Tab PO 10 mg BID BRYN Administration Furosemide 20 mg 02/04/22 10:00 02/04/22 09:17 Furosemide 20 Mg Tab PO 20 mg QDAY BRYN Administration Guaifenesin 200 mg 02/04/22 12:30 Guaifenesin 100 Mg/5 Ml Oral Liqd PO Q4H PRN Cough Heparin Sodium (Porcine) 5,000 unit 02/03/22 22:00 02/04/22 09:16 Heparin 5,000 Unit/1 Ml Vial SUB-Q 5,000 unit Q12HR BRYN Administration Hydrochlorothiazide 25 mg 02/04/22 10:00 02/04/22 09:16 Hydrochlorothiazide 25 Mg Tab PO 25 mg QDAY BRYN Administration Hydromorphone HCl 0.5 mg 02/03/22 16:55 Hydromorphone 0.5 Mg/0.5 Ml Inj IV Q13H PRN Pain , Severe (7-10) Lisinopril 40 mg 02/04/22 10:00 02/04/22 09:17 Lisinopril 40 Mg Tab PO 40 mg DAILY BRYN Administration Methylprednisolone Sodium Succinate 40 mg 02/03/22 22:00 02/04/22 05:49 Methylprednisolone Sod Succinate 40 Mg/1 Ml Inj IV 40 mg Q8HR BRYN Administration Metoprolol Succinate 25 mg 02/04/22 10:00 02/04/22 09:17 Metoprolol Succinate Xl 25 Mg Tab PO 25 mg QDAY BRYN Administration Ondansetron HCl 4 mg 02/03/22 16:55 Ondansetron 4 Mg/2 Ml Inj IV Q8H PRN Nausea And Vomiting Oxycodone/Acetaminophen 1 tab 02/03/22 16:55 Oxycodone /Acetaminophen 5-325mg Tab PO Q6H PRN Pain, Moderate (4-6) Phenytoin 200 mg 02/03/22 22:00 02/03/22 22:16 Phenytoin 100 Mg Capsule.Er PO 200 mg QHS BRYN Administration Risperidone 3 mg 02/03/22 22:00 02/04/22 09:16 Risperidone 1 Mg Tab PO 3 mg BID BRYN Administration Sodium Chloride 10 ml 02/03/22 22:00 02/04/22 09:17 Sodium Chloride 0.9% 10 Ml Flush Syringe IV 10 ml BID BRYN Administration Sodium Chloride 10 ml 02/03/22 16:55 Sodium Chloride 0.9% 10 Ml Flush Syringe IV PRN PRN LINE FLUSH Trazodone HCl 100 mg 02/03/22 22:00 02/03/22 22:16 Trazodone 100 Mg Tab PO 100 mg QHS BRYN Administration Zinc Sulfate 220 mg 02/03/22 22:00 02/04/22 09:16 Zinc Sulfate 220 Mg Cap PO 220 mg BID BRYN Administration
[2022-02-04] MEDS ORDERED: guaiFENesin 100 MG/5 ML ORAL LIQD PO PRN (12:30)
[2022-02-04 13:01] VITALS: BP 112/75
[2022-02-04] MEDS ORDERED: SODIUM CHLORIDE 0.9% 50 ML IVPB IV SCH (14:00)
[2022-02-04 16:04] LABS: Alanine Aminotransferase 19 units/L (7-56); Albumin 4.3 g/dL (3.9-5); BUN/Creatinine Ratio 18; Blood Urea Nitrogen 14 mg/dL (9-20); Calcium 9.4 mg/dL (8.4-10.2); Hemolysis Index 8
--- NOTE | 2022-02-04 17:49 | Electrocardiograph Report ---
[facility] Test Date: 2022-02-03 Test Time: 14:18:04 Pat Name: MARTIN CANO JR Department: Room: A358 1 Gender: M Bag Checker: GP : 1980 Requested By: JULIAN DORSEY Order Number: [id number] Reading MD: Meño Zhang Measurements Intervals [place] Rate: 106 P: 34 FL: 155 QRS: 63 QRSD: 82 T: 26 QT: 323 QTc: 430 Interpretive Statements Sinus tachycardia Consider left ventricular hypertrophy No previous ECG available for comparison Electronically Signed On 02-04-2022 17:48:54 EDT by Meño Zhang
--- NOTE | 2022-02-05 10:32 | Discharge Summary ---
Providers - Providers Date of Admission: 02/03/22 16:55 Date of discharge: 02/04/22 Attending physician: JEROD BUNCH 02/03/22 17:08 Consult to Physician [CONS] Routine Comment: Consulting Provider: DENISE WHARTON Physician Instructions: Reason For Exam: pui Primary care physician: MIRROR INSPECTOR Hospitalization Reason for admission: COVID Pna Condition: Fair Hospital course: 41-year-old male with past medical history of hypertension, schizophrenia, tobacco abuse and seizure disorder was admitted through the emergency department with complaints of shortness of breath, fatigue and body aches x3 days. Patient was admitted with diagnosis below Acute hypoxic respiratory failure Bilateral pneumonia Suspected COVID-19 Obesity hypoventilation syndrome Morbid obesity Hospital course: 02/04/2022. Patient currently on steroids and if found to be COVID-positive we will switch to Decadron 6 mg daily. IV remdesivir x5 days added for now given high suspicion for COVID-19 per ID recommendations. Procalcitonin was low, therefore antibiotics discontinued. Continue to trend inflammatory markers. No anticoagulation at this time given normal D-dimer. Patient initially required nonrebreather on admission for oxygen supplementation. However, now patient with 4 L O2 satting at 96%. Pulmonary consultation as needed. Nurse reports that patient left AMA. Dedicated discharge time 32 minutes. Disposition: LEFT AGAINST MEDICAL ADVICE Final Discharge Diagnosis (Prints w/discharge instructions): Acute hypoxic respiratory failure. Bilateral pneumonia. Suspected COVID-19. Obesity hypoventilation syndrome. Morbid obesity Core Measure Documentation - Palliative Care Palliative Care/ Comfort Measures: Not Applicable - Core Measures Any of the following diagnoses?: none Exam - Constitutional Vitals: Temp Pulse Resp BP Pulse Ox 98.2 F 96 H 18 112/75 95 02/04/22 13:01 02/04/22 12:49 02/04/22 12:49 02/04/22 12:49 02/04/22 13:01 Plan Follow up with: PRIMARY CAREMD [Primary Care Provider] - 3-5 Days Forms: AMA Form
[2022-02-05] MEDS ORDERED: REMDESIVIR 100 MG in SODIUM CHLORIDE 0.9% 250ML 250 ML IV SCH (14:00)
== END 2022-02-04 16:50 | disposition left against medical advice (07) | DRG 189 ==
LOC: ED 12:26 → 3A 16:55
PROVIDERS: ADMIT Internal Medicine; ATTEND Hospitalist
DX: J96.01 Acute respiratory failure with hypoxia (principal); J18.9 Pneumonia, unspecified organism; E66.2 Morbid (severe) obesity with alveolar hypoventilation; Z20.822 Contact with and (suspected) exposure to COVID-19; Z53.29 Procedure and treatment not carried out because of patient's decision for other reasons; F20.9 Schizophrenia, unspecified; F17.200 Nicotine dependence, unspecified, uncomplicated; I10 Essential (primary) hypertension; G40.909 Epilepsy, unspecified, not intractable, without status epilepticus; Z79.899 Other long term (current) drug therapy; Z83.3 Family history of diabetes mellitus; Z82.49 Family history of ischemic heart disease and other diseases of the circulatory system; Z86.73 Personal history of transient ischemic attack (TIA), and cerebral infarction without residual deficits; Z79.84 Long term (current) use of oral hypoglycemic drugs
CPT/HCPCS: 36415; 71045; 80053; 80164; 80320; 82140; 82550; 82728; 82947; 82962; 83615; 83735; 84145; 84484; 85007; 85025; 85379; 85610; 85730; 86140; 87040; 93005; 94640; 94760; G0378; G0480; J1100; J1644; J2920; U0003